=== PATIENT | female | born 1940 | race Caucasian/White ===

== ENCOUNTER 2020-02-10 10:11 | Inpatient (IN) | payer MEDICARE, MEDICAID ==
[~2020-02-10] VITALS: Ht 165.1 cm; Wt 72.6 kg
--- NOTE | ~2020-02-10 | CON ---
[address] [address] CONSULTATION Name: YUE GODFREY Room: [address] IN M.R.#: [id number] Admission: 02/10/20 Attend Phys: Katerina Luque Discharge: Date of : 36 Report #: [id number] THIS REPORT FOR: //name// cc: Je Alanis MD, Dennis R MD ~ THIS REPORT FOR: //name// DATE OF SERVICE: 02/10/2020 CONSULT REQUESTED BY: Dr. Cardenas. INDICATION FOR CONSULTATION: Pulmonary infiltrate. HISTORY OF PRESENT ILLNESS: This is an 80-year-old female. She is a resident of a longterm. The patient currently has altered mental status. It is possible that she has significant dementia as well as she is not able to provide any meaningful history. The patient has been transferred here according to the records due to decreased O2 saturations. The patient has a very large infiltrate in the right upper lobe, likely extending into the right middle lobe. There is dense consolidation of the right upper lobe on her chest x-ray. The patient has been fluid resuscitated, also has been treated with Zosyn and Levaquin. She currently has a significant amount of gurgling and rattling mucus in the upper airways. The patient, however, has been taking orally without problems according to the patient's nurse. The patient did have a higher respiratory rate at the time of my examination up to 30, although most previous respiratory rates are documented in the 18-20 range. The patient has been oxygenating adequately with 2 L oxygen. The patient is confused at the time of my examination and therefore is unable to provide a further history or review of systems. PAST MEDICAL HISTORY: COPD is mentioned in the records; however, it is also mentioned that she is a lifetime nonsmoker. Diabetes, hypertension, gastroesophageal reflux disease, bradycardia, hyperlipidemia, TIAs with some mental delay. SOCIAL HISTORY: Resident of a long-term care facility. No known history of smoking, ethanol abuse or drug abuse. ALLERGIES: ASPIRIN. FAMILY HISTORY: There is a history of lung cancer in her family according to the records. CURRENT MEDICATIONS: List in [employer] reviewed. HOME MEDICATIONS: List also in [facility] [place] [address] CONSULTATION Name: YUE GODFREY Room: [address]#: [id number] Admission: 02/10/20 Attend Phys: Katerina Luque Discharge: Date of : 36 Report #: [id number] PHYSICAL EXAMINATION: GENERAL: She is drowsy, but fully arousable. VITAL SIGNS: Has a pulse of 60 and a blood pressure of 137/51. At the time of my examination she did have accessory muscle use and a respiratory rate around 30-32. Note that this is significantly higher than those previously documented in the records, the patient has received fluids. It is noted she is afebrile. She is saturating in the high 90s on 2 liters oxygen via nasal cannula. The patient is unable to answer orientation questions. HEENT: Head is normocephalic and atraumatic. Pupils are equal and reactive. There is no throat erythema. Throat examination; however, is limited due to limited patient cooperation. NECK: Does not show raised JVP, asymmetry, mass or lymph nodes. CHEST: Symmetrical expansion on inspection and palpation. On auscultation, there are transmitted sounds from upper airways. The patient appears to have significant mucous plugging. HEART: Regular. There is no murmur. ABDOMEN: Soft and nontender. EXTREMITIES: Lower extremities show no edema, no calf tenderness. SKIN: Dry and intact. NEUROLOGICAL: Moves all extremities bilaterally equally and spontaneously, no focal deficit identified. LABORATORY DATA: The patient's chest x-ray shows a large infiltrate is as discussed above. CT head did not show any acute bleed. The CBC as well as chemistries are [facility]. These are reviewed. I ordered repeat chemistries from this evening. COVID-19 antigen is negative. ASSESSMENT AND PLAN: 1. Acute hypoxemic respiratory failure. The patient does have increased work of breathing. Therefore, I recommend that she be placed on a BiPAP while asleep and p.r.n. and for this reason, I recommend that she to be transferred to a negative pressure room as I also would like to obtain a COVID-19 PCR. 2. Severe healthcare-associated pneumonia/pulmonary infiltrate. There is a very large infiltrate noted in the right upper lobe, likely extending into the right middle lobe. We will continue with Levaquin as well as Zosyn as per guidelines, we will also like to cover for MRSA and therefore Zyvox is ordered as in my view the potential risk of nephrotoxicity with vancomycin is higher than average in this patient. More cultures and serologies are also ordered. We will also go ahead and give her 2 doses of Solu-Medrol. We will assess tomorrow morning regarding whether more steroids are indicated. I would treat her with nebulized bronchodilators. 3. Mucus plugging, physical examination is consistent with this. We will order Mucomyst. 4. High aspiration risk. Recommend strict aspiration precautions and obtain a speech evaluation tomorrow morning. The patient's RN reports that she does not [facility] [address] [address] CONSULTATION Name: YUE GODFREY Room: [address] IN M.R.#: [id number] Admission: 02/10/20 Attend Phys: Katerina Luque Discharge: Date of : 38 Report #: [id number] have any obvious difficulty in swallowing. 5. Severe malnutrition/fluid overload. I feel that she is total body fluid overloaded. It is possible; however, that she had intravascular volume depletion at least at presentation; therefore, she has been fluid resuscitated. I will repeat labs this evening and then will decide as to whether some diuresis with albumin should be administered. 6. Deep vein thrombosis prophylaxis. If her anemia is chronic, then I will recommend considering subcutaneous Lovenox. 7. Gastrointestinal prophylaxis, proton pump inhibitor. 8. Diabetes. I would defer management to the primary service since I am ordering Solu-Medrol for now, I did order an insulin sliding scale. This may need to be changed and I would defer to the primary service in this regard. 9. Clostridium difficile prophylaxis, Florastor. Thanks for this consultation. By: 1807 1909Aelizabeth Marcial MD /nt
--- NOTE | ~2020-02-10 | EMS ---
[address] [address] EMS Patient Care Report Name: YUE GODFREY Room: [address] IN [facility]#: [id number] Admission: 02/10/20 Attend Phys: Katerina Luque Discharge: Date of : 38 Report #: [id number] THIS REPORT FOR: //name// Report Transmitted: 02/10/2020 20:49 EMS Care Summary [facility] Joshua BEAUCHAMP Incident [id number] @ 02/10/2020 09:15 Incident Location [address] [place] [address] Patient YUE GODFREY Female, 80 Years 1940 Patient Address [address] [place] [address] Patient History Chronic Obstructive Pulmonary Disease (COPD),Type 2 diabetes mellitus,Hyperlipidemia,Anemia, unspecified,Congestive Heart Failure (CHF),Gastro-Esophageal Reflux Disease (GERD),Other chronic pain,Pneumonia, unspecified organism,Transient cerebral ischemic attack, unspecified, Patient Allergies , Patient Medications ferrous sulfate, Hydralazine, Ipratropium, Furosemide, Lisinopril, Calcium Carbonate / Calcium Gluconate / Vitamin D, Potassium Chloride, pantoprazole, ezetimibe, Clonazepam, Amoxicillin / Clavulanate, Insulin Glargine, pregabalin, NovoLog, Acetaminophen, Vimpat, Acetaminophen, Magnesium Hydroxide, Chief Complaint Altered Level of Consciousness Disposition Transported No Lights/[place] Reason Breathing Problem [facility] [address] [place] [address] EMS Patient Care Report Name: YUE GODFREY Room: [address] ADM IN [facility].#: [id number] Admission: 02/10/20 Attend Phys: Katerina Luque Discharge: Date of : 38 Report #: [id number] Narrative [facility] DIS[address]ATCHED TO [address], ROOM 81 ON RESPIRATORY DISTRESS. STARTING LOCATION IS [address] [place] [address]. THIS IS FOR AN 80 YEAR OLD FEMALE WITH ALTERED LEVEL OF CONSCIOUSNESS, SHORT OF AIR, PNEUMONIA HISTORY. CALLER ADVISES TO ENTER FACILITY VIA BACK ENTRANCE. 315 ARRIVES ON SCENE WITHOUT INCIDENT. PATIENTS NURSE LETS [facility] IN AT REAR DOOR AND ESCORTS TO ROOM 81. IN 81, PATIENT (YUE) FOUND UPRIGHT IN SEMI-MELGOZA'S POSITION ON FACILITY BED. YUE'S EYES OPEN TO VERBAL STIMULATION AND TRACK TO PROVIDERS, BREATHING REGULAR/NON-LABORED/ON ROOM AIR, MILD RHONCHI CAN BE HEARD AT END OF EXPIRATION, SKIN INTACT/CONDITION NOTED. NURSING STAFF STATES CALLING 911 AFTER YUE SHOWED DECREASE RESPONSIVENESS BY "CLOSING HER EYES AND NOT SHUTTING HER MOUTH" FOR LAST 20 MINUTES. NURSE CONTINUES THAT YUE BEGAN TO SHOW DECREASED RESPONSIVENESS STARTING LAST NIGHT BEFORE DINNER. PER STAFF, YUE'S BASELINE IS ALERT TO SELF, VERBALIZES SPONTANEOUSLY WITH ORIENTED CONVERSATION, AND YUE IS ABLE TO WHEEL HERSELF AROUND IN WHEELCHAIR. STARTING LAST NIGHT BEFORE DINNER, YUE HAS SHOWN GENERALIZED WEAKNESS AND IS NOT VERBAL IN RESPONSE TO STAFF. YUE WAS TRANSPORTED TO [facility] ED LAST SUNDAY, WHERE SHE WAS DIAGNOSED WITH PNEUMONIA AND PRESCRIBED AUGMENTIN. FACILITY STAFF PROVIDES RESIDENT PAPERWORK INDICATING VITALS ASSESSED BY STAFF PRIOR TO ARRIVAL WELL MEDICAL HISTORY, MEDICATIONS, AND PHYSICIAN ORDERS. STAFF NEEDED TO ASSIST YUE WITH BREAKFAST THIS MORNING. YUE HAS BEEN ADMINISTERED HER PERCOCET, VIMPAT, AND LYRICA THIS MORNING. SHE ALSO RECEIVED IPRATROPIUM NEBULIZER THERAPY SCHEDULED AT 06:00. ALL ASSESSMENTS AND TREATMENTS ARE PERFORMED DOCUMENTED. YUE KEEPS MOUTH OPEN AT ALL TIMES, GIVING MUFFLED RESPONSES TO INDICATE YES OR NO TO QUESTIONS. YUE COMPLAINS OF WEAKNESS, DIFFICULTY BREATHING, AND FEELING TIRED. SHE DENIES PAIN, FEELING LIGHT-HEADED, DIZZY, ONE SIDED SENSORY OR MOTOR CHANGES, NAUSEA, VOMITING, DIARRHEA, OR FEVER. FURTHER DETAILED HISTORY OF PRESENT ILLNESS IMPACTED BY YUE'S DECREASED VERBAL RESPONSIVENESS. DUE TO [facility] EXPERIENCING HIGH VOLUME, [facility] AGREED ON BY [facility] AND FACILITY STAFF DESTINATION. STAFF STATES THEY WILL NOTIFY FAMILY OF DESTINATION DECISION. COT BROUGHT INTO 81 AND PLACED NEXT TO FACILITY BED. [place] [id number] USE DRAW SHEET TO TRANSFER YUE LATERALLY TO COT WITHOUT INCIDENT AND SECURED WITH ALL SEAT BELTS. COT TAKEN TO AMBULANCE AND SECURED IN AMBULANCE. IN AMBULANCE, ALL ASSESSMENTS AND TREATMENTS ARE PERFORMED NOTED. TRANSPORT BEGINS TO [facility] NEAREST FACILITY NOT ON HIGH VOLUME STATUS IN INTEREST OF YUE NOT EXPERIENCING POSSIBLE DELAY IN ED EVALUATION OR TREATMENT. DURING TRANSPORT, YUE REMAINS SECURE ON COT UPRIGHT IN SEMI-MELGOZA'S POSITION. ALL ONGOING ASSESSMENTS AND TREATMENTS PERFORMED NOTED. YUE STATES HER BREATHING IS FEELING "A LITTLE BETTER" AFTER OXYGEN THERAPY. YUE CONTINUES TO DENY OTHER ACUTE COMPLAINT. Amy ARRIVES AT [facility] ED WITHOUT INCIDENT. EXPLANATION OF PRIVACY RIGHTS EXPLAINED TO YUE, AND SHE NODS IN AGREEMENT, BUT SHE DOES NOT FOLLOW VERBAL REQUESTS FOR SIGNATURE DUE TO GLOBAL EXTREMITY WEAKNESS. PER FACILITY STAFF'S REPORT, YUE IS STILL SHOWING ALTERED [facility] [address] [place] [address] EMS Patient Care Report Name: YUE GODFREY Room: [address] IN [facility].#: [id number] Admission: 02/10/20 Attend Phys: Katerina Luque Discharge: Date of : 38 Report #: [id number] MENTATION FROM BASELINE, SO SIGNATURE OF PRIVACY RIGHTS DEFERRED TO DESTINATION NURSING STAFF. A MASK IS PLACED ON YUE, AND SEATBELTS ENSURED SECURE. COT REMOVED FROM AMBULANCE AND TAKEN TO ED 18. IN ED 18, COT PLACED NEXT TO ED BED. 315 USES DRAW SHEET TO TRANSFER YUE LATERALLY TO ED BED WITHOUT INCIDENT. VERBAL REPORT GIVEN, SIGNATURES OBTAINED, AND 315 IS CLEAR AND AVAILABLE. END REPORT. Initial Vitals @09:33SpO2: 96, @09:34SpO2: 96, @09:35SpO2: 96, @09:38SpO2: 95, @09:47SpO2: 97, @09:48SpO2: 97, @09:53SpO2: 98, @09:57SpO2: 98, @10:02SpO2: 99, @09:26SpO2: 86, @PTASpO2: 90, @09:36 @09:47 @09:41Temp: 98.06F, @09:35P: 57,R: 20,BP: 116/46, @09:47P: 54,R: 19,BP: 112/45, @09:57P: 52,R: 19,BP: 114/46, @09:27P: 56,R: 20,BP: 116/50, @PTAP: 96, @09:71DjBF2: 28, @09:39LlXA5: 32, @09:88GoCM8: 32, @09:73PvKH8: 32, @09:29FrGE5: 33, @09:05BiQY1: 33, @09:82WaKI2: 33, @09:85QxHA7: 32, @09:83TpTO6: 32, @09:70ApOV7: 32, @10:82WiSH5: 32, @09:35GCS: 12, @09:47GCS: 15, @09:57GCS: 13, @09:27GCS: 12, @TRANSITION MANAGER @09:39Glucose: 193, [place] [address] EMS Patient Care Report Name: TANESHA GODFREYN Nilda Room: [address] IN [facility]#: [id number] Admission: 02/10/20 Attend Phys: Katerina Luque Discharge: Date of : 36 Report #: [id number] @09:23MENTAL:SKIN:HEENT:LUNG SOUNDS:ABDOMEN:PELVIS//GI:EXTREMITIES:PULSE:NEURO: Impression Pneumonia, unspecified organism Procedures @09:27Other - Medication - 2.000 Liters per Minute (l/min [fluid]) - Nasal CannulaResponse: Improved@09:39 cc () Site: Forearm-LeftResponse: UnchangedSucceeded@09:39 cc () Site: Forearm-LeftResponse: UnchangedSucceeded@09:41 cc () Response: UnchangedSucceeded@09:28Digital respired carbon dioxide monitoring (regime/therapy)Response: UnchangedSucceeded@09:33Digital respired carbon dioxide monitoring (regime/therapy)Response: UnchangedSucceeded@09:34Digital respired carbon dioxide monitoring (regime/therapy)Response: UnchangedSucceeded@09:35Digital respired carbon dioxide monitoring (regime/therapy)Response: UnchangedSucceeded@09:38Digital respired carbon dioxide monitoring (regime/therapy)Response: UnchangedSucceeded@09:43Digital respired carbon dioxide monitoring (regime/therapy)Response: UnchangedSucceeded@09:47Digital respired carbon dioxide monitoring (regime/therapy)Response: UnchangedSucceeded@09:48Digital respired carbon dioxide monitoring (regime/therapy)Response: UnchangedSucceeded@09:53Digital respired carbon dioxide monitoring (regime/therapy)Response: UnchangedSucceeded@09:57Digital respired carbon dioxide monitoring (regime/therapy)Response: UnchangedSucceeded@10:02Digital respired carbon dioxide monitoring (regime/therapy)Response: UnchangedSucceeded@09:3612-Lead ECGResponse: UnchangedSucceeded@09:4712-Lead ECGResponse: UnchangedSucceeded Timeline TRANSITION MANAGER,BP: / M,PULSE: ,RR: R,SPO2: 90 Ox,ETCO2: ,BG: ,PAIN: ,GCS: , TRANSITION MANAGER,BP: 93/ M,PULSE: 96,RR: R,SPO2: Ox,ETCO2: ,BG: ,PAIN: ,GCS: , TRANSITION MANAGER,BP: / M,PULSE: ,RR: R,SPO2: Ox,ETCO2: ,BG: ,PAIN: ,GCS: , 09:15,Call Received 09:15,Dispatch Notified 09:15,Psap Call 09:15,Dispatched 09:15,En Route 09:21,On Scene 09:23,At Patient 09:26,BP: / M,PULSE: ,RR: R,SPO2: 86 Ox,ETCO2: ,BG: ,PAIN: ,GCS: , 09:27,Other - Medication - 2.000 Liters per Minute (l/min [fluid]) - Nasal Cannula,Response: Improved 09:27,BP: 116/50 M,PULSE: 56,RR: 20 R,SPO2: Ox,ETCO2: ,BG: ,PAIN: ,GCS: , 09:27,BP: / M,PULSE: ,RR: R,SPO2: Ox,ETCO2: ,BG: ,PAIN: ,GCS: 12, 09:28,Digital respired carbon dioxide monitoring (regime/therapy),Response: UnchangedSucceeded, [place] [address] EMS Patient Care Report Name: YUE GODFREY Room: [address] IN [facility].#: [id number] Admission: 02/10/20 Attend Phys: Katerina Luque Discharge: Date of : 38 Report #: [id number] 09:28,BP: / M,PULSE: ,RR: R,SPO2: Ox,ETCO2: 28 ,BG: ,PAIN: ,GCS: , 09:33,Digital respired carbon dioxide monitoring (regime/therapy),Response: UnchangedSucceeded, :33,BP: / M,PULSE: ,RR: R,SPO2: 96 Ox,ETCO2: ,BG: ,PAIN: ,GCS: , 09:33,BP: / M,PULSE: ,RR: R,SPO2: Ox,ETCO2: 32 ,BG: ,PAIN: ,GCS: , 09:34,Digital respired carbon dioxide monitoring (regime/therapy),Response: UnchangedSucceeded, 09:34,BP: / M,PULSE: ,RR: R,SPO2: 96 Ox,ETCO2: ,BG: ,PAIN: ,GCS: , 09:34,BP: / M,PULSE: ,RR: R,SPO2: Ox,ETCO2: 32 ,BG: ,PAIN: ,GCS: , 09:35,Digital respired carbon dioxide monitoring (regime/therapy),Response: UnchangedSucceeded, 09:35,BP: / M,PULSE: ,RR: R,SPO2: 96 Ox,ETCO2: ,BG: ,PAIN: ,GCS: , 09:35,BP: 116/46 M,PULSE: 57,RR: 20 R,SPO2: Ox,ETCO2: ,BG: ,PAIN: ,GCS: , 09:35,BP: / M,PULSE: ,RR: R,SPO2: Ox,ETCO2: 32 ,BG: ,PAIN: ,GCS: , 09:35,BP: / M,PULSE: ,RR: R,SPO2: Ox,ETCO2: ,BG: ,PAIN: ,GCS: 12, 09:36,12-Lead ECG,Response: UnchangedSucceeded, 09:36,BP: / M,PULSE: ,RR: R,SPO2: Ox,ETCO2: ,BG: ,PAIN: ,GCS: , 09:38,Digital respired carbon dioxide monitoring (regime/therapy),Response: UnchangedSucceeded, 09:38,BP: / M,PULSE: ,RR: R,SPO2: 95 Ox,ETCO2: ,BG: ,PAIN: ,GCS: , 09:38,BP: / M,PULSE: ,RR: R,SPO2: Ox,ETCO2: 33 ,BG: ,PAIN: ,GCS: , 09:39, cc Site: Forearm-Left,Response: UnchangedSucceeded, 09:39, cc Site: Forearm-Left,Response: UnchangedSucceeded, 09:39,BP: / M,PULSE: ,RR: R,SPO2: Ox,ETCO2: ,B,PAIN: ,GCS: , 09:41, cc Site: ,Response: UnchangedSucceeded, 09:41,BP: / M,PULSE: ,RR: R,SPO2: Ox,ETCO2: ,BG: ,PAIN: ,GCS: , 09:43,Digital respired carbon dioxide monitoring (regime/therapy),Response: UnchangedSucceeded, 09:43,BP: / M,PULSE: ,RR: R,SPO2: Ox,ETCO2: 33 ,BG: ,PAIN: ,GCS: , 09:47,Digital respired carbon dioxide monitoring (regime/therapy),Response: UnchangedSucceeded, 09:47,12-Lead ECG,Response: UnchangedSucceeded, 09:47,BP: / M,PULSE: ,RR: R,SPO2: 97 Ox,ETCO2: ,BG: ,PAIN: ,GCS: , 09:47,BP: / M,PULSE: ,RR: R,SPO2: Ox,ETCO2: ,BG: ,PAIN: ,GCS: , 09:47,BP: 112/45 M,PULSE: 54,RR: 19 R,SPO2: Ox,ETCO2: ,BG: ,PAIN: ,GCS: , 09:47,BP: / M,PULSE: ,RR: R,SPO2: Ox,ETCO2: 33 ,BG: ,PAIN: ,GCS: , 09:47,BP: / M,PULSE: ,RR: R,SPO2: Ox,ETCO2: ,BG: ,PAIN: ,GCS: 15, 09:48,Digital respired carbon dioxide monitoring (regime/therapy),Response: UnchangedSucceeded, 09:48,BP: / M,PULSE: ,RR: R,SPO2: 97 Ox,ETCO2: ,BG: ,PAIN: ,GCS: , 09:48,BP: / M,PULSE: ,RR: R,SPO2: Ox,ETCO2: 32 ,BG: ,PAIN: ,GCS: , 09:48,Depart Scene 09:53,Digital respired carbon dioxide monitoring (regime/therapy),Response: UnchangedSucceeded, 09:53,BP: / M,PULSE: ,RR: R,SPO2: 98 Ox,ETCO2: ,BG: ,PAIN: ,GCS: , 09:53,BP: / M,PULSE: ,RR: R,SPO2: Ox,ETCO2: 32 ,BG: ,PAIN: ,GCS: , [address] [address] EMS Patient Care Report Name: YUE GODFREY Room: [address] IN .R.#: [id number] Admission: 02/10/20 Attend Phys: Katerina Luque Discharge: Date of : 36 Report #: [id number] 09:57,Digital respired carbon dioxide monitoring (regime/therapy),Response: UnchangedSucceeded, 09:57,BP: / M,PULSE: ,RR: R,SPO2: 98 Ox,ETCO2: ,BG: ,PAIN: ,GCS: , 09:57,BP: 114/46 M,PULSE: 52,RR: 19 R,SPO2: Ox,ETCO2: ,BG: ,PAIN: ,GCS: , 09:57,BP: / M,PULSE: ,RR: R,SPO2: Ox,ETCO2: 32 ,BG: ,PAIN: ,GCS: , 09:57,BP: / M,PULSE: ,RR: R,SPO2: Ox,ETCO2: ,BG: ,PAIN: ,GCS: 13, 10:02,Digital respired carbon dioxide monitoring (regime/therapy),Response: UnchangedSucceeded, 10:02,BP: / M,PULSE: ,RR: R,SPO2: 99 Ox,ETCO2: ,BG: ,PAIN: ,GCS: , 10:02,BP: / M,PULSE: ,RR: R,SPO2: Ox,ETCO2: 32 ,BG: ,PAIN: ,GCS: , 10:06,At Destination 10:29,Call Closed Disclaimer v1.1 Copyright 2020 [employer] This EMS Care Summary contains data elements from the applicable legal record (which may be displayed differently). It is designed to provide pertinent information for the following purposes: continuity of care, clinical quality, and state data reporting. The complete legal record is available to ED staff and administrators of the receiving hospital in [employer] Patient Tracker. All data is provided "as is."
[2020-02-10 10:12] VITALS: BP 111/29
[2020-02-10] MEDS ORDERED: FERRETTS325 MG PO (10:40)
[2020-02-10] MEDS ORDERED: HYDRALAZINE 2525 M1 PO (10:40)
[2020-02-10] MEDS ORDERED: MULTIVITAMINS1 EAC6 PO (10:41)
[2020-02-10] MEDS ORDERED: IPRATROPIU0.2 MG/1 M INH (10:41)
[2020-02-10] MEDS ORDERED: LASIX 20 MG TAB20 MG PO (10:41)
[2020-02-10] MEDS ORDERED: ZESTRIL20 MG PO (10:41)
[2020-02-10] MEDS ORDERED: KLOR-CON 10 ER10 MEQ PO (10:42)
[2020-02-10] MEDS ORDERED: OYSTER SHELL 21 EACH PO (10:42)
[2020-02-10] MEDS ORDERED: PROTONIX40 M3 PO (10:42)
[2020-02-10] MEDS ORDERED: CLONAZEPAM 0.50.5 M1 PO (10:42)
[2020-02-10] MEDS ORDERED: ZETIA10 MG PO (10:42)
[2020-02-10] MEDS ORDERED: PERCOCET 5-3251 EACH PO (10:43)
[2020-02-10] MEDS ORDERED: NOVOLOG100 UNIT/M SUBQ (10:43)
[2020-02-10] MEDS ORDERED: LYRICA100 MG PO (10:43)
[2020-02-10] MEDS ORDERED: LANTUS SUBQ (10:43)
[2020-02-10] MEDS ORDERED: BIOFREEZE118 ML TOP (10:44)
[2020-02-10] MEDS ORDERED: TYLENOL325 M1 PO (10:44)
[2020-02-10] MEDS ORDERED: VIMPAT200 MG PO (10:44)
[2020-02-10] MEDS ORDERED: MILK OF MA400 MG/5 M PO (10:44)
[2020-02-10 10:58] LABS: HEMATOCRIT 28.6 % (37.0-47.0); HEMOGLOBIN 8.9 gm/dL (12.0-15.0); MCH 22.9 pg (26.0-34.0); MCHC 30.9 g/dL (28.0-37.0); MCV 74.2 fL (80.0-100.0); MPV 7.6 fl. (7.2-11.1); NUCLEATED RBCS 0 /100WBC; PLATELET COUNT* 211 thou/uL (150-400); RBC 3.86 mil/uL (4.20-5.00); RDW-CV 18.6 % (10.5-14.5); WBC 12.1 thou/uL (4.0-11.0)
[2020-02-10 11:08] LABS: CALCIUM 7.5 mg/dL (8.5-10.1); CREATININE 1.1 mg/dL (0.6-1.3); POTASSIUM 3.5 mmol/L (3.5-5.1)
[2020-02-10 11:17] LABS: ALBUMIN 1.4 g/dL (3.4-5.0); TOTAL BILIRUBIN 0.2 mg/dL (<0.1-1.0); TOTAL PROTEIN 5.7 g/dL (6.4-8.2)
[2020-02-10 11:20] LABS: APTT 26.1 Seconds (25.0-31.3); INR 1.1; PROTIME 11.7 Seconds (9.20-11.50)
[2020-02-10 11:31] LABS: ABSOLUTE LYMPHOCYTES 0.2 thou/uL (0.8-5.3); ABSOLUTE MONOCYTES 0.8 thou/uL (0.0-1.2); HYPOCHROMASIA 2+; OVALOCYTES 1+; PLATELET ESTIMATE ADEQUATE
[2020-02-10 11:32] LABS: MICROCYTES 1+
[2020-02-10 14:06] LABS: CREATININE 1.1 mg/dL (0.6-1.3); POTASSIUM 3.2 mmol/L (3.5-5.1)
[2020-02-10 14:09] LABS: MAGNESIUM 1.9 mg/dL (1.8-2.4); PHOSPHORUS* 4.2 mg/dL (2.5-4.9)
--- NOTE | 2020-02-10 14:31 | EKG ---
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 /EPI
[2020-02-10 14:41] VITALS: BP 129/46
[2020-02-10 14:50] VITALS: BP 111/33
[2020-02-10 16:00] VITALS: BP 137/51
[2020-02-10 20:00] VITALS: BP 123/45
[2020-02-10 20:03] LABS: CALCIUM 7.6 mg/dL (8.5-10.1); CREATININE 0.9 mg/dL (0.6-1.3); POTASSIUM 4.1 mmol/L (3.5-5.1)
[2020-02-11] VITALS: BP 132/58
[2020-02-11 04:00] VITALS: BP 140/67
[2020-02-11 04:25] LABS: ABSOLUTE LYMPHOCYTES 0.1 thou/uL (0.8-5.3); ABSOLUTE MONOCYTES 0.2 thou/uL (0.0-1.2); BASOPHILS 0.3 %; HEMATOCRIT 28.8 % (37.0-47.0); HEMOGLOBIN 9.2 gm/dL (12.0-15.0); LYMPHOCYTES 1.2 %; MCH 23.3 pg (26.0-34.0); MCHC 31.8 g/dL (28.0-37.0); MCV 73.3 fL (80.0-100.0); MONOCYTES 1.6 %; NUCLEATED RBCS 0 /100WBC; PLATELET COUNT* 205 thou/uL (150-400); POLYS 96.9 %; RBC 3.93 mil/uL (4.20-5.00); RDW-CV 18.2 % (10.5-14.5); WBC 11.4 thou/uL (4.0-11.0)
[2020-02-11 05:00] LABS: ALBUMIN 1.6 g/dL (3.4-5.0); CALCIUM 7.8 mg/dL (8.5-10.1); POTASSIUM 4.3 mmol/L (3.5-5.1); TOTAL BILIRUBIN 0.4 mg/dL (<0.1-1.0); TOTAL PROTEIN 6.2 g/dL (6.4-8.2)
[2020-02-11 08:45] VITALS: BP 149/68
[2020-02-11 12:30] VITALS: BP 148/64
[2020-02-11 16:00] VITALS: BP 141/70
[2020-02-11 20:00] VITALS: BP 123/77
[2020-02-12] VITALS: BP 141/60
[2020-02-12 04:00] VITALS: BP 147/59
[2020-02-12 04:34] LABS: ABSOLUTE BASOPHILS 0.1 thou/uL (0.0-0.2); ABSOLUTE LYMPHOCYTES 0.4 thou/uL (0.8-5.3); ABSOLUTE NEUTROPHILS 11.7 thou/uL (1.6-8.1); BASOPHILS 0.9 %; EOSINOPHILS 0.2 %; HEMOGLOBIN 9.5 gm/dL (12.0-15.0); LYMPHOCYTES 3.2 %; MCH 22.6 pg (26.0-34.0); MCHC 31.5 g/dL (28.0-37.0); MCV 71.7 fL (80.0-100.0); MONOCYTES 7.9 %; NUCLEATED RBCS 0 /100WBC; PLATELET COUNT* 248 thou/uL (150-400); POLYS 87.8 %; RBC 4.18 mil/uL (4.20-5.00); RDW-CV 17.9 % (10.5-14.5); WBC 13.3 thou/uL (4.0-11.0)
[2020-02-12 05:31] LABS: ALBUMIN 2.1 g/dL (3.4-5.0); CALCIUM 8.2 mg/dL (8.5-10.1); CREATININE 0.9 mg/dL (0.6-1.3); MAGNESIUM 1.4 mg/dL (1.8-2.4); TOTAL BILIRUBIN 0.4 mg/dL (<0.1-1.0); TOTAL PROTEIN 6.5 g/dL (6.4-8.2)
[2020-02-12 05:45] LABS: POTASSIUM 2.9 mmol/L (3.5-5.1)
[2020-02-12 10:05] VITALS: BP 156/78
[2020-02-12 16:00] VITALS: BP 163/76
[2020-02-12 19:35] VITALS: BP 160/81
[2020-02-13] VITALS: BP 160/103
[2020-02-13 04:00] VITALS: BP 135/83
[2020-02-13 08:00] VITALS: BP 111/75
[2020-02-13] MEDS ORDERED: BROVANA15 MCG/2 M INH (09:29)
[2020-02-13] MEDS ORDERED: VIBRAMYCIN 100100 M2 PO (09:29)
[2020-02-13 12:00] VITALS: BP 165/80
[2020-02-13] MEDS ORDERED: AUGMENTIN 875-1 EACH PO (12:59)
[2020-02-13 14:00] VITALS: BP 111/75
== END 2020-02-13 14:48 | DRG 177 ==
LOC: M.ERS 10:11 → M.TBA-ER 11:35 → M.2W 11:35
PROVIDERS: Emergency Medicine Emergency Medical Services; Internal Medicine Critical Care Medicine; ADMIT Internal Medicine; ATTEND Internal Medicine
DX: J15.6 Pneumonia due to other Gram-negative bacteria (principal); E43 Unspecified severe protein-calorie malnutrition; J96.01 Acute respiratory failure with hypoxia; J44.0 Chronic obstructive pulmonary disease with (acute) lower respiratory infection; I95.9 Hypotension, unspecified; E87.70 Fluid overload, unspecified; E87.6 Hypokalemia; K21.9 Gastro-esophageal reflux disease without esophagitis; E78.5 Hyperlipidemia, unspecified; I10 Essential (primary) hypertension; T17.990A Other foreign object in respiratory tract, part unspecified in causing asphyxiation, initial encounter; E11.65 Type 2 diabetes mellitus with hyperglycemia; Z20.828 Contact with and (suspected) exposure to other viral communicable diseases; Z68.26 Body mass index [BMI] 26.0-26.9, adult; Z79.4 Long term (current) use of insulin; Z88.8 Allergy status to other drugs, medicaments and biological substances; Z79.899 Other long term (current) drug therapy; Z28.21 Immunization not carried out because of patient refusal; Z86.73 Personal history of transient ischemic attack (TIA), and cerebral infarction without residual deficits

== ENCOUNTER 2020-02-16 11:05 | Inpatient (IN) | payer MEDICARE, MEDICAID ==
[2020-02-16] VITALS (26 sets, daily range): BP systolic 79–139; BP diastolic 24–72
[~2020-02-16] VITALS: Ht 167.6 cm; Wt 62.3 kg
[~2020-02-16 11:05] MED LIST: AUGMENTIN 875-1 EACH PO; BIOFREEZE118 ML TOP; BROVANA15 MCG/2 M INH; CLONAZEPAM 0.50.5 M1 PO; FERRETTS325 MG PO; HYDRALAZINE 2525 M1 PO; IPRATROPIU0.2 MG/1 M INH; KLOR-CON 10 ER10 MEQ PO; LANTUS SUBQ; LASIX 20 MG TAB20 MG PO; LYRICA100 MG PO; MILK OF MA400 MG/5 M PO; MULTIVITAMINS1 EAC6 PO; NOVOLOG100 UNIT/M SUBQ; OYSTER SHELL 21 EACH PO; PERCOCET 5-3251 EACH PO; PROTONIX40 M3 PO; TYLENOL325 M1 PO; VIBRAMYCIN 100100 M2 PO; VIMPAT200 MG PO; ZESTRIL20 MG PO; ZETIA10 MG PO
[2020-02-16 11:42] LABS: BE -6.6 mmol/L (-2 to +3); pH 7.331 (7.340-7.450)
[2020-02-16 11:53] LABS: HEMATOCRIT 31.1 % (37.0-47.0); HEMOGLOBIN 9.6 gm/dL (12.0-15.0); MCH 22.9 pg (26.0-34.0); MCV 73.8 fL (80.0-100.0); MPV 7.7 fl. (7.2-11.1); NUCLEATED RBCS 0 /100WBC; PLATELET COUNT* 243 thou/uL (150-400); RBC 4.21 mil/uL (4.20-5.00); RDW-CV 19.5 % (10.5-14.5); WBC 19.9 thou/uL (4.0-11.0)
[2020-02-16 12:01] LABS: CALCIUM 7.8 mg/dL (8.5-10.1); CREATININE 2.4 mg/dL (0.6-1.3); POTASSIUM 3.8 mmol/L (3.5-5.1)
[2020-02-16 12:06] LABS: ALBUMIN 1.9 g/dL (3.4-5.0); MAGNESIUM 1.9 mg/dL (1.8-2.4); TOTAL BILIRUBIN 0.4 mg/dL (<0.1-1.0); TOTAL PROTEIN 6.2 g/dL (6.4-8.2)
[2020-02-16 12:17] LABS: URINE BILIRUBIN NEGATIVE (Negative); URINE BLOOD NEGATIVE (Negative); URINE CLARITY CLEAR; URINE COLOR YELLOW; URINE GLUCOSE-RANDOM NEGATIVE (Negative); URINE KETONES NEGATIVE (Negative); URINE LEUKOCYTES-REFLEX NEGATIVE (Negative); URINE NITRITE-REFLEX NEGATIVE (Negative); URINE PROTEIN NEGATIVE (Negative); URINE SPECIFIC GRAVITY >= 1.030 (1.005-1.030); URINE UROBILINOGEN 0.2 E.U./dl (0.2-1.0)
[2020-02-16 12:19] LABS: ABSOLUTE NEUTROPHILS 18.9 thou/uL (1.6-8.1); PLATELET ESTIMATE ADEQUATE
--- NOTE | 2020-02-16 17:56 | EKG ---
[place] [address] ELECTROCARDIOGRAM REPORT Name: YUE GODFREY Nilda Room: [address] ADM IN M.R.#: [id number] Admission: 02/16/20 Attend Phys: Hira Ren, Discharge: Date of : 36 Date of Service: 02/16/20 1112 Report #: [id number] THIS REPORT FOR: //name// [facility] ED Test Date: 2020-02-16 Test Time: 11:12:27 Pat Name: YUE GODFREY Department: Room: [facility] Gender: F Nail Tech: CCD : 1940 Requested By: Belia Parra Order Number: [id number] MD: Nigel Pepe Measurements Intervals [place] Rate: 84 P: -32 GA: 167 QRS: 57 QRSD: 112 T: 55 QT: 425 QTc: 503 Interpretive Statements Sinus rhythm Low voltage, precordial leads Prolonged QT interval Compared to ECG 02/10/2020 10:45:49 Prolonged QT interval now present Sinus bradycardia no longer present Poor R-wave progression no longer present Electronically Signed On 02-16-2020 17:56:11 CDT by Nigel Pepe [email or web address] <ELECTRONICALLY SIGNED> By: Nigel Pepe MD, FACC 02/16/20 1756 11 111 Nigel Pepe MD, FACC /EPI
--- NOTE | 2020-02-16 19:45 | NUR ---
I ASSUMED CARE OF THE PATIENT A TRANSFER AT 1500. PATIENT HAD A STAT CT OF HEAD JUST BEFORE ARRIVAL. SHE WAS TURNED EVERY 2 HOURS. A CENTRAL LINE WAS PLACED BY ANESTHESIA IN THE RIGHT IJ. FLUIDS ARE NOW RUNNING AND IV ANTIBIOTICS ARE BEING HUNG. OXYGEN IS MAINTAINED ON 2 LITERS. SHE REMAINS NPO AND IS HARD TO AROUSE, BUT WAS COMBATIVE WHILE LINE WAS BEING PLACED. GI WAS CONTACTED AND WILL SEE THE PATIENT TOMORROW. BED IS IN THE LOW LOCKED POSITION AND CALL LIGHT IS IN REACH. BED ALARM IS ON. HOURLY ROUNDING WAS COMPLETED AND PATIENT NEEDS ARE MET.
--- NOTE | 2020-02-16 22:53 | NUR ---
INITAL ASSESMENT COMPLETED AT 1930. PT LETHARGIC AND PRIENTED TO PERSON ONLY. PT REFUSING PO MEDS OR ORAL CARE. PT CLENCHES TEETH. PT ON O2 ATH 2 LITERS TO MAINTAIN SAT >94%. PT RECIEVING NORMAL SALINE AT 150 ML/HR VIA CENTRAL LINE IN RIGHT IJ. PT'S MAP AT THIS TIME 48. PT STARTED ON LEVOPHED TO MAINTAIN MAP > 65.
[2020-02-17] VITALS (59 sets, daily range): BP systolic 57–159; BP diastolic 28–85
[2020-02-17 06:00] LABS: ABSOLUTE LYMPHOCYTES 0.2 thou/uL (0.8-5.3); BASOPHILS 0.1 %; HEMOGLOBIN 8.9 gm/dL (12.0-15.0); LYMPHOCYTES 1.3 %; PLATELET COUNT* 215 thou/uL (150-400)
[2020-02-17 06:01] LABS: ABSOLUTE EOSINOPHILS 0.1 thou/uL (0.0-0.7); ABSOLUTE MONOCYTES 0.8 thou/uL (0.0-1.2); ABSOLUTE NEUTROPHILS 15.2 thou/uL (1.6-8.1); EOSINOPHILS 0.5 %; HEMATOCRIT 28.1 % (37.0-47.0); MCH 23.2 pg (26.0-34.0); MCHC 31.8 g/dL (28.0-37.0); MCV 72.9 fL (80.0-100.0); MONOCYTES 4.7 %; MPV 7.6 fl. (7.2-11.1); NUCLEATED RBCS 0 /100WBC; POLYS 93.4 %; RBC 3.86 mil/uL (4.20-5.00); RDW-CV 19.4 % (10.5-14.5); WBC 16.3 thou/uL (4.0-11.0)
[2020-02-17 06:10] LABS: CALCIUM 7.5 mg/dL (8.5-10.1); POTASSIUM 3.8 mmol/L (3.5-5.1)
[2020-02-17 06:17] LABS: CREATININE 1.3 mg/dL (0.6-1.3)
[2020-02-17 06:33] LABS: PREALBUMIN 11.1 mg/dL (18.0-35.7)
--- NOTE | 2020-02-17 06:48 | NUR ---
LEVO STOPPED AT 0645.
[2020-02-17 10:10] LABS: PCO2 31.9 mmHg (35.0-45.0); PO2 63.2 mmHg (75.0-100.0); pH 7.341 (7.340-7.450)
[2020-02-17 14:35] LABS: BE -10.8 mmol/L (-2 to +3); PO2 79.3 mmHg (75.0-100.0)
[2020-02-17 14:37] LABS: PCO2 50.4 mmHg (35.0-45.0); pH 7.161 (7.340-7.450)
--- NOTE | 2020-02-17 14:42 | NUR ---
ICU rounds: A&Ox1. Ivabx. O2. ST for swallow. Pt recently dc back to [facility] on 02/12. WC bound. CM left VM for Pt's dtr, will try back later to complete hx assessment.
--- NOTE | 2020-02-17 15:16 | NUR ---
WOUND NURSE: PATIENT SEEN TO ADDRESS EXCORIATION AND REDDISH PURPLE NONBLANCHEABLE SKIN ON THE SACRUM COCCYX AND BILATERAL BUTTOCKS. SUGGESTIVE OF INCONTINENCE ASSOCIATED DERMATITIS PATIENT WAS INCONTINENT OF FECES AT TIME OF ASSESSMENT AND HAS KEN CATHETER IN PLACE. PATIENT ALSO WITH SMALL AREAS WITHIN THIS LARGER AREA OF SUSPECTED DEEP TISSUE INJURY. AFFECTED AREA WAS CLEANSED WITH SOAP AND WATER, RINSED, THEN PATTED DRY. APPLIED Z-GUARD MOISTURE BARRIER PASTE TO AFFECTED AREAS. PLAN TO CONTINUE THIS Q SHIFT AND PRN. ALSO PATIENT WAS PLACED ON ICU BED WITH ISOLIBRIUM MATTRESS TO OFFLOAD AFFECTED AREA MUCH POSSIBLE. PATIENT IS NOT TEACEABLE AT THIS TIME.
[2020-02-17 15:40] LABS: ABSOLUTE EOSINOPHILS 0.1 thou/uL (0.0-0.7); ABSOLUTE LYMPHOCYTES 0.3 thou/uL (0.8-5.3); ABSOLUTE MONOCYTES 0.4 thou/uL (0.0-1.2); ABSOLUTE NEUTROPHILS 24.6 thou/uL (1.6-8.1); BASOPHILS 0.1 %; EOSINOPHILS 0.4 %; HEMATOCRIT 31.4 % (37.0-47.0); HEMOGLOBIN 9.4 gm/dL (12.0-15.0); LYMPHOCYTES 1.1 %; MCH 22.8 pg (26.0-34.0); MONOCYTES 1.6 %; MPV 7.6 fl. (7.2-11.1); NUCLEATED RBCS 0 /100WBC; PLATELET COUNT* 262 thou/uL (150-400); POLYS 96.8 %; RBC 4.13 mil/uL (4.20-5.00); RDW-CV 20.1 % (10.5-14.5); WBC 25.4 thou/uL (4.0-11.0)
[2020-02-17 15:51] LABS: CALCIUM 7.8 mg/dL (8.5-10.1); CREATININE 1.2 mg/dL (0.6-1.3)
[2020-02-17 15:53] LABS: APTT 29.8 Seconds (25.0-31.3); INR 1.3; PROTIME 13.6 Seconds (9.20-11.50)
[2020-02-17 15:55] LABS: ALBUMIN 1.6 g/dL (3.4-5.0); MAGNESIUM 1.4 mg/dL (1.8-2.4); TOTAL BILIRUBIN 0.5 mg/dL (<0.1-1.0); TOTAL PROTEIN 5.9 g/dL (6.4-8.2)
--- NOTE | 2020-02-17 19:21 | NUR ---
ASSESSMENT CHARTED PT HAD THREE LARGE BOWEL MOVEMENT ALERT TO SELF ONLY CONFUSED AT TIME PULLED OUT R IJ PULLED OFF LEADS O2 SAT ECT ABG DRAWN PT PUT ON BIPAP STARTED PRECEDEX AND BICARB GTT TOLERATING WELL WILL FOLLOW UP WITH NEXT ABG
[2020-02-17 20:06] LABS: BE -8.3 mmol/L (-2 to +3); PCO2 25.6 mmHg (35.0-45.0); PO2 98.9 mmHg (75.0-100.0); pH 7.401 (7.340-7.450)
--- NOTE | 2020-02-17 23:18 | NUR ---
INITAL ASSEMENT COMLETED AT 1999. PT ON BIPAP SINCE DAYSHIFT. PT ALERT TO PERSON AND SITUATION. PT IMPULSIVE REMOVING LEADS AND BIPAP AT TIMES. PT UNABLE TO FOLLOW OR REMEMBER INSTRUCTIONS. HIGH FALL PRECAUTIONS IN PLACE. PT'S HEART RATE AT THIS TIME 39. PRESEDEX DRIP STOPPED SECONDARY TO BRADYCARDIA. LEVOPHED STARTED AT THIS TIME TO MAINTAIN MAP> 65. BED ALARM ON, CALL LIGHT IN REACH, FREQUENT VISUAL CHECKS DONE.
--- NOTE | 2020-02-17 23:47 | NUR ---
UPDATED DR MILLER REGARDING PT'S CONDITION. RECIEVED ORDERS.
[2020-02-18] VITALS (56 sets, daily range): BP systolic 60–166; BP diastolic 20–91
[2020-02-18 04:35] LABS: ABSOLUTE LYMPHOCYTES 0.1 thou/uL (0.8-5.3); BASOPHILS 0.1 %; HEMOGLOBIN 7.8 gm/dL (12.0-15.0); NUCLEATED RBCS 0 /100WBC; POLYS 97.3 %
[2020-02-18 04:38] LABS: ABSOLUTE MONOCYTES 0.1 thou/uL (0.0-1.2); ABSOLUTE NEUTROPHILS 9.5 thou/uL (1.6-8.1); HEMATOCRIT 24.5 % (37.0-47.0); LYMPHOCYTES 1.1 %; MCH 23.7 pg (26.0-34.0); MONOCYTES 1.5 %; MPV 7.6 fl. (7.2-11.1); PLATELET COUNT* 197 thou/uL (150-400); RBC 3.31 mil/uL (4.20-5.00); RDW-CV 20.3 % (10.5-14.5)
[2020-02-18 04:40] LABS: WBC 9.8 thou/uL (4.0-11.0)
[2020-02-18 05:02] LABS: ALBUMIN 1.9 g/dL (3.4-5.0); CALCIUM 7.9 mg/dL (8.5-10.1); POTASSIUM 3.3 mmol/L (3.5-5.1); TOTAL BILIRUBIN 0.4 mg/dL (<0.1-1.0); TOTAL PROTEIN 5.6 g/dL (6.4-8.2)
--- NOTE | 2020-02-18 05:13 | NUR ---
LEVOPHED OFF AT 0500.
--- NOTE | 2020-02-18 08:50 | NUR ---
RIGHT BASILIC VESSEL ACCESSED FOR 5 AMERICAN TRIPLE LUMEN PICC. LINE PRE-TRIMMED TO 35CM AND ADVANCED TO THE ZERO THU WITH NO RESISTANCE MET. UPPER ARM CIRCUMFERENCE ABOVE ISERTION SITE= 11 1/2". SHERLOCK MAGNET AND 3CG CONFIRMATION OF TIP TERMINATION AT THE CAVOATRIAL JUNCTION APPRECIATED. GUIDEWIRE REMOVED, LINE FLUSHED AND INSERTION SITE DRESSED. PICC LINE SITE DRESSED WITH COBAN PATIENT HAS DECANNULATED HERSELF OF PREVIOUS IJ CENTRAL LINE AND OTHER PERIPHERAL IV'S. REPORT GIVEN TO NICK GARCES.
[2020-02-18 08:52] LABS: BE -8.2 mmol/L (-2 to +3); PCO2 37.4 mmHg (35.0-45.0)
[2020-02-18 09:00] LABS: PO2 151.2 mmHg (75.0-100.0); pH 7.291 (7.340-7.450)
--- NOTE | 2020-02-18 14:57 | NUR ---
ICU rounds: On bipap, Pt is DNR/DNI, family to discuss code status tonight.
--- NOTE | 2020-02-18 17:25 | NUR ---
pt assessment as charted pt remained on bipap becomes anxious started on precedex hr and b/p become soft and has to be turned off but comes right back up pt doesn't like wearing bipap but needs it daughter in room and updated
[2020-02-18 20:18] LABS: BE -4.4 mmol/L (-2 to +3); PCO2 VENOUS 43.6 mmHg (41.0-51.0); PO2 VENOUS 142.1 mmHg (35.0-45.0)
[2020-02-18 20:29] LABS: CALCIUM 7.7 mg/dL (8.5-10.1); CREATININE 1.1 mg/dL (0.6-1.3)
--- NOTE | 2020-02-18 22:41 | NUR ---
INITAL ASSESMENT COMPLETED AT 193. PT ALERT TO PERSON ONLY. PT CALM AND COOPERATIVE RESTING ON BIPAP. VBG OBTAIN AT 1999. RESULTS CALLED TO DR MILLER. REPORTED BLOOD PRESSURES BELOW NORMAL LIMITS AND NEED TO START LEVOPHED AT 2044. ORDER RECIEVED TO INFUSE ONE BOTTLE OF ALBUMIN. BED ALARM ON, FREQUENT VISUAL CHECKS DONE, CALL LIGHT IN REACH.
[2020-02-19] VITALS (53 sets, daily range): BP systolic 85–167; BP diastolic 37–108
--- NOTE | 2020-02-19 03:11 | NUR ---
levophed discontinued at 0300.
[2020-02-19 03:58] LABS: ABSOLUTE LYMPHOCYTES 0.2 thou/uL (0.8-5.3); BASOPHILS 0.1 %; MPV 7.3 fl. (7.2-11.1)
[2020-02-19 04:00] LABS: ABSOLUTE MONOCYTES 0.6 thou/uL (0.0-1.2); ABSOLUTE NEUTROPHILS 10.3 thou/uL (1.6-8.1); HEMATOCRIT 25.5 % (37.0-47.0); LYMPHOCYTES 1.6 %; MCH 22.9 pg (26.0-34.0); MCHC 31.5 g/dL (28.0-37.0); MCV 72.5 fL (80.0-100.0); MONOCYTES 5.3 %; NUCLEATED RBCS 0 /100WBC; PLATELET COUNT* 185 thou/uL (150-400); RBC 3.51 mil/uL (4.20-5.00); RDW-CV 19.4 % (10.5-14.5); WBC 11.1 thou/uL (4.0-11.0)
[2020-02-19 04:13] LABS: ALBUMIN 2.5 g/dL (3.4-5.0); POTASSIUM 3.7 mmol/L (3.5-5.1); TOTAL BILIRUBIN 0.5 mg/dL (<0.1-1.0); TOTAL PROTEIN 5.8 g/dL (6.4-8.2)
--- NOTE | 2020-02-19 10:19 | NUR ---
1012 PATIENT IS BECOMING ANXIOUS, TACHYCARDIC PATIENT STATES ITS BECAUSE SHE WANTS THE BIPAP MASK OFF. PATIENT'S BIPAP REMOVED AND PLACED ON NASAL CANNULA. 1020 PATIENT YELLING OUT AGAIN WANT TO PUT MASK BACK ON. BIPAP WILL BE PLACED BACK ON PATIENT.
--- NOTE | 2020-02-19 16:03 | NUR ---
ICU rounds: Remains DNR/DNI. Refusing bipap. Difficulty breathing. Pulm following.
[2020-02-19 17:19] LABS: CALCIUM 8.3 mg/dL (8.5-10.1)
--- NOTE | 2020-02-19 20:02 | NUR ---
INITAL ASSESMENT COMPLETED AT 1945. PT ON 7 LITERS HI FLOW WITH SAT OF 99%. PT ORIENTED TO PERSON AND SITUATION. PT FOLLOWS COMMANDS BUT IMPULSIVE AT TIMES. CALL LIGHT IN REACH, BED ALARM ON, FREQUENT VISUAL CHECKS DONE.
[2020-02-19 20:41] LABS: CALCIUM 8.5 mg/dL (8.5-10.1); CREATININE 1.1 mg/dL (0.6-1.3); POTASSIUM 3.9 mmol/L (3.5-5.1)
--- NOTE | 2020-02-19 22:36 | NUR ---
SPOKE WITH DR MILLER AT 0 TO REPORT INCREASED CRACKLES AND RALES. PT'S RESPIRATIONS LABORED. RECIEVED ORDERS FOR IV LASIX AND POTASSIUM REPLACEMENT.
[2020-02-20] VITALS (93 sets, daily range): BP systolic 79–172; BP diastolic 40–121
--- NOTE | 2020-02-20 02:55 | NUR ---
PT AWAKE AT 0230 HAVING SEVERE ANXIETY. PT'S HEART RATE > 110, RESPIRATIONS 28. PT SHAKING SIDE RAILS OF BED AND YELLING. SPOKE WITH DR MILLER AND RECIEVED ORDERS. PT GIVEN 1 MG HALDOL IV.
[2020-02-20 06:05] LABS: ABSOLUTE LYMPHOCYTES 0.2 thou/uL (0.8-5.3); ABSOLUTE MONOCYTES 0.5 thou/uL (0.0-1.2); ABSOLUTE NEUTROPHILS 9.7 thou/uL (1.6-8.1); BASOPHILS 0.2 %; HEMATOCRIT 28.5 % (37.0-47.0); HEMOGLOBIN 9.2 gm/dL (12.0-15.0); LYMPHOCYTES 1.7 %; MCH 23.9 pg (26.0-34.0); MCHC 32.4 g/dL (28.0-37.0); MCV 73.7 fL (80.0-100.0); MONOCYTES 5.1 %; MPV 7.7 fl. (7.2-11.1); NUCLEATED RBCS 0 /100WBC; PLATELET COUNT* 224 thou/uL (150-400); RBC 3.86 mil/uL (4.20-5.00); RDW-CV 19.6 % (10.5-14.5); WBC 10.4 thou/uL (4.0-11.0)
[2020-02-20 06:17] LABS: PREALBUMIN 17.4 mg/dL (18.0-35.7)
[2020-02-20 06:31] LABS: ALBUMIN 2.5 g/dL (3.4-5.0); CALCIUM 8.2 mg/dL (8.5-10.1); CREATININE 1.3 mg/dL (0.6-1.3); POTASSIUM 4.6 mmol/L (3.5-5.1); TOTAL BILIRUBIN 0.6 mg/dL (<0.1-1.0); TOTAL PROTEIN 6.3 g/dL (6.4-8.2)
--- NOTE | 2020-02-20 10:51 | NUR ---
WOUND NURSE: ATTEMPT MADE TO SEE PATIENT TODAY. PT NOT STABLE AT THIS TIME AND PRIMARY NURSE REQUEST PT NOT BE DISTURBED. FLYNN, PRIMARY NURSE, REPORTS AREAS WE ARE MONITORING ARE PROGRSSING TO HEALING. DENIES QUESTIONS OR NEEDS REGUARDING WOUND CARE AT THIS TIME.
[2020-02-20 13:46] LABS: BF RBC <1000 /mm3; TOTAL CELL COUNT 429 /mm3
[2020-02-20 13:52] LABS: CLARITY HAZY; TOTAL VOLUME 960 ml
[2020-02-20 13:53] LABS: BF OTHER CYTO TO FOLLOW
[2020-02-20 13:54] LABS: SOURCE PLEURAL FLUID
[2020-02-20 13:57] LABS: BF LYMPHOCYTES 33 %; BF MONOCYTES 4 %; BF POLYS 63 %; BF TISSUE 9 /100 WBC
[2020-02-20 15:27] LABS: ABSOLUTE LYMPHOCYTES 0.3 thou/uL (0.8-5.3); ABSOLUTE MONOCYTES 0.7 thou/uL (0.0-1.2); BASOPHILS 0.3 %; HEMATOCRIT 25.4 % (37.0-47.0); HEMOGLOBIN 8.2 gm/dL (12.0-15.0); LYMPHOCYTES 3.5 %; MCH 23.5 pg (26.0-34.0); MCHC 32.4 g/dL (28.0-37.0); MCV 72.6 fL (80.0-100.0); MONOCYTES 8.7 %; MPV 7.6 fl. (7.2-11.1); NUCLEATED RBCS 0 /100WBC; PLATELET COUNT* 191 thou/uL (150-400); POLYS 87.5 %; RDW-CV 19.9 % (10.5-14.5)
[2020-02-20 15:38] LABS: ALBUMIN 2.3 g/dL (3.4-5.0); CALCIUM 8.1 mg/dL (8.5-10.1); CREATININE 1.2 mg/dL (0.6-1.3); MAGNESIUM 1.9 mg/dL (1.8-2.4); POTASSIUM 3.7 mmol/L (3.5-5.1); TOTAL BILIRUBIN 0.5 mg/dL (<0.1-1.0); TOTAL PROTEIN 5.6 g/dL (6.4-8.2)
--- NOTE | 2020-02-20 15:47 | NUR ---
ICU rounds: Wearing bipap, 1:1 as needed for bipap compliance. Vtach, cardiology consulted, amio gtt. Thora today. On precedex
[2020-02-20 16:10] LABS: BE 1.8 mmol/L (-2 to +3); PCO2 VENOUS 38.9 mmHg (41.0-51.0); PO2 VENOUS 50.3 mmHg (35.0-45.0)
--- NOTE | 2020-02-20 17:17 | 2DMMODE ---
[place] [address] 2 D/M-MODE ECHOCARDIOGRAM Name: YUE GODFREY Room: [address] ADM IN M.R.#: [id number] Admission: 02/16/20 Attend Phys: Hira Ren, Discharge: Date of : 36 Date of Service: 02/20/20 1716 Report #: [id number] THIS REPORT FOR: cc: Je Alanis MD, Dennis R MD Liston,Nigel Chawla MD [facility] ~ APPROVED REPORT Study performed: 02/20/2020 15:17:01 EXAM: Comprehensive 2D, Doppler, and color-flow Echocardiogram BSA: 1.70 Left Ventricle The left ventricle is normal size. There is global hypokinesis of the left ventricle. There is normal left ventricular wall thickness. Left ventricular ejection fraction is severely decreased. LVEF is 25-30%. Transmitral Doppler flow pattern suggests impaired LV relaxation. Right Ventricle The right ventricle is normal size. The right ventricular systolic function is normal. Atria The left atrium size is normal. The right atrium size is normal. Aortic Valve The Aortic valve is sclerotic. No aortic regurgitation is present. Moderate aortic stenosis. Mitral Valve There is mitral annular calcification. Moderate mitral regurgitation. No evidence of mitral valve stenosis. Tricuspid Valve The tricuspid valve is normal in structure. Trace tricuspid regurgitation. Pulmonic Valve Pulmonic valve [place] [address] 2 D/M-MODE ECHOCARDIOGRAM Name: YUE GODFREY Room: [address] IN .R.#: [id number] Admission: 02/16/20 Attend Phys: Hira Ren, Discharge: Date of : 36 Date of Service: 02/20/201715 Report #: [id number] Great Vessels The aortic root is normal in size. IVC is dilated and collapses <50% with inspiration. <Conclusion> The left ventricle is normal size. There is normal left ventricular wall thickness. Left ventricular ejection fraction is severely decreased. LVEF is 25-30%. Transmitral Doppler flow pattern suggests impaired LV relaxation. There is global hypokinesis of the left ventricle. Moderate aortic stenosis. Moderate mitral regurgitation. IVC is dilated and collapses <50% with inspiration. <ELECTRONICALLY SIGNED> By: Nigel Pepe MD, FACC 02/20/201715 15 15 Nigel Ppee MD, FACC /INF
--- NOTE | 2020-02-20 18:44 | NUR ---
PT A/O TO SELF.ON 1L O2 NC CURRENTLY.BIPAP MUCH POSSIBLE WHEN TOLERATED.PT HAD WHAT APPEARED TO BE RUNS OF VTACH-CARDIOLOGY CONSULTED WITH AMIO GTT STARTED.PRECEDEX GTT OFF DUE TO NO AGITATION.STARTED ON VENUS DRIP FOR LOW BP.RIGHT THORACENTESIS COMPLETED-960ML REMOVED.ECHO COMPLETED.DAUGHTER JOHNSON VISITED AT [facility].ROGERIO GONZALES GRANDDAUGHTER IS VISITOR 02/21/20.WILL CONTINUE TO MONITOR FOR DURATION OF SHIFT.
[2020-02-21] VITALS (32 sets, daily range): BP systolic 105–156; BP diastolic 52–102
[2020-02-21 03:50] LABS: ALBUMIN 2.8 g/dL (3.4-5.0); CALCIUM 8.6 mg/dL (8.5-10.1); CREATININE 1.3 mg/dL (0.6-1.3); MAGNESIUM 2.5 mg/dL (1.8-2.4); POTASSIUM 4.5 mmol/L (3.5-5.1); TOTAL BILIRUBIN 0.7 mg/dL (<0.1-1.0); TOTAL PROTEIN 6.7 g/dL (6.4-8.2)
[2020-02-21 03:55] LABS: ABSOLUTE LYMPHOCYTES 0.4 thou/uL (0.8-5.3); ABSOLUTE MONOCYTES 0.3 thou/uL (0.0-1.2); ABSOLUTE NEUTROPHILS 19.5 thou/uL (1.6-8.1); BASOPHILS 0.1 %; HEMATOCRIT 31.9 % (37.0-47.0); HEMOGLOBIN 10.1 gm/dL (12.0-15.0); LYMPHOCYTES 1.7 %; MCH 23.1 pg (26.0-34.0); MCHC 31.7 g/dL (28.0-37.0); MCV 72.7 fL (80.0-100.0); MONOCYTES 1.3 %; MPV 7.8 fl. (7.2-11.1); NUCLEATED RBCS 1 /100WBC; POLYS 96.9 %; RBC 4.38 mil/uL (4.20-5.00); RDW-CV 19.9 % (10.5-14.5); WBC 20.2 thou/uL (4.0-11.0)
[2020-02-21 03:56] LABS: PREALBUMIN 21.5 mg/dL (18.0-35.7)
[2020-02-21 03:59] LABS: PLATELET COUNT* 388 thou/uL (150-400)
--- NOTE | 2020-02-21 05:39 | NUR ---
ASSUMED CARE AT 1900H, ON NC AT 1LPM AND INCREASE TO 3LPM AND TOLERATED. PT REFUSED TO WEAR HER BIPAP. AT TIMES CONFUSED AND RESTLESS, PRECEDEX RE-STARTED. ORIENT PT AND KEPT SAFE. LUNG CRACKLES SOUND DECREASED. PT WAS MORE RELAXED. UPDATE GIVEN TO DTR. CONTINUE MONITORING AND TOWARDS GOALS. VENUS STOP AT 0500H.
--- NOTE | 2020-02-21 18:50 | NUR ---
PT A&O x4. NIH 9, LT SIDED PARESIS, COMMUNICATION INTACT. TOLERATING DIET, NEEDS A SET UP WITH HER MEALS. PURE WICK CATH IN PLACE, WORKING GOOD. VSS. SON IN THE UNIT FOR FEW HOURS. REPORT GIVEN TO GLENNY GUNDERSON.
--- NOTE | 2020-02-21 20:21 | NUR ---
O2 SUPPORT TITRATED AND TURNED OFF AT 1500, SATS >92% IN RA. PRECEDEX DRIP DOWN TO 0.3 MCG/KG/MIN, CALM AND COOPERATIVE. COMPLETE BATH PROVIDED. OKAY FOR PUREED WITH NECTAR THICK LIQUID PER SPEECH. INTAKE VERY MINIMAL, ENCOURAGED.
[2020-02-22] VITALS (14 sets, daily range): BP systolic 130–156; BP diastolic 67–102
[2020-02-22 04:41] LABS: HEMATOCRIT 30.4 % (37.0-47.0); HEMOGLOBIN 9.6 gm/dL (12.0-15.0); MCH 23.1 pg (26.0-34.0); MCHC 31.6 g/dL (28.0-37.0); MCV 73.1 fL (80.0-100.0); MPV 7.6 fl. (7.2-11.1); NUCLEATED RBCS 0 /100WBC; RBC 4.15 mil/uL (4.20-5.00); RDW-CV 20.2 % (10.5-14.5); WBC 12.8 thou/uL (4.0-11.0)
[2020-02-22 04:45] LABS: PLATELET COUNT* 248 thou/uL (150-400)
[2020-02-22 04:59] LABS: ALBUMIN 2.3 g/dL (3.4-5.0); CREATININE 1.4 mg/dL (0.6-1.3); POTASSIUM 3.2 mmol/L (3.5-5.1); TOTAL BILIRUBIN 0.8 mg/dL (<0.1-1.0)
--- NOTE | 2020-02-22 05:58 | NUR ---
VITALS STABLE, AFEBRILE. PT REMAINS ON RA. BM X2, LIQUID/JELLY. SAMPLE SENT TO LAB TO R/O C.DIFF. PT DENIES PAIN. DID NOT SLEEP MUCH THROUGH THE NIGHT. ORIENTED TO SELF AND SITUATION, KNOWS SHE'S IN A HOSPITAL BUT UNSURE WHICH ONE. REORIENTATION PROVIDED NEEDED. OTHERWISE UNEVENTFUL NIGHT. Q2 TURNS FOR SKIN INTEGRITY. WILL CONTINUE MONITORING FOR THE REMAINDER OF SHIFT.
[2020-02-22 07:02] LABS: ABSOLUTE LYMPHOCYTES 0.3 thou/uL (0.8-5.3); ABSOLUTE MONOCYTES 0.5 thou/uL (0.0-1.2); ANISOCYTOSIS 1+; HYPOCHROMASIA 1+; OVALOCYTES Occasional; PLATELET ESTIMATE ADEQUATE; POIKILOCYTOSIS 1+
[2020-02-22 11:06] LABS: BODY FLUID PROTEIN 1.3 g/dL (())
[2020-02-22 15:06] LABS: BODY FLUID PH 7.6 (Not Estab.)
--- NOTE | 2020-02-22 16:58 | NUR ---
PT RESTING IN BED THROUGHOUT SHIFT,REPOSITIONED FREQUENTLY. PT INCONTINENT OF STOOL,CLEANED AND OINTMENT APPLIED. PT ASSISTED WITH MEALS,POOR APPETITE AND ORAL INTAKE. KEN CATH DRAINING DARK YELLOW URINE.PLEASANTLY CONFUSED BUT NOT IMPULSIVE
[2020-02-23] VITALS: BP 150/73
[2020-02-23 04:00] VITALS: BP 134/82
--- NOTE | 2020-02-23 04:40 | NUR ---
ASSUMED PATIENT CARE AT 1900. ASSESSMENT COMPLETED CHARTED. CARDIAC MONITOING IN PLACE. HOURLY ROUNDING IN PLACE FOR PATIENT SAFETY. FALL PRECAUTIONS IN PLACE FOR PATIENT SAFETY. BED LOCKED AND IN LOWEST POSITION. CLWR. PATIENT HAD ONE BM DURING SHIFT. BM WAS LOOSE.
[2020-02-23 05:10] LABS: ABSOLUTE LYMPHOCYTES 0.2 thou/uL (0.8-5.3); ABSOLUTE MONOCYTES 0.4 thou/uL (0.0-1.2); ABSOLUTE NEUTROPHILS 11.4 thou/uL (1.6-8.1); BASOPHILS 0.1 %; HEMATOCRIT 30.2 % (37.0-47.0); HEMOGLOBIN 9.7 gm/dL (12.0-15.0); LYMPHOCYTES 1.3 %; MCH 23.4 pg (26.0-34.0); MCV 73.2 fL (80.0-100.0); MONOCYTES 3.4 %; MPV 7.9 fl. (7.2-11.1); NUCLEATED RBCS 0 /100WBC; PLATELET COUNT* 240 thou/uL (150-400); POLYS 95.2 %; RBC 4.13 mil/uL (4.20-5.00); RDW-CV 20.5 % (10.5-14.5)
[2020-02-23 05:17] LABS: ALBUMIN 2.4 g/dL (3.4-5.0); CALCIUM 8.1 mg/dL (8.5-10.1); CREATININE 1.3 mg/dL (0.6-1.3); TOTAL BILIRUBIN 0.6 mg/dL (<0.1-1.0); TOTAL PROTEIN 5.8 g/dL (6.4-8.2)
[2020-02-23 05:18] LABS: POTASSIUM 2.8 mmol/L (3.5-5.1)
--- NOTE | 2020-02-23 10:35 | CON ---
[address] [address] CONSULTATION Name: TANESHA GODFREYN Nilda Room: [address] ADM IN M.R.#: [id number] Admission: 02/16/20 Attend Phys: Hira Ren MD Discharge: Date of : 36 Report #: [id number] THIS REPORT FOR: //name// cc: Je Alanis MD, Dennis R MD ~ DATE OF SERVICE: 02/17/2020 PRIMARY CARE PHYSICIAN: Je Alanis MD Please note at the time of this dictation, the patient was seen and physically examined by myself. HISTORY OF PRESENT ILLNESS: This is an 80-year-old female who was residing in a [facility]. It was noted by the staff that she had not been eating and feeding herself and was poorly responsive yesterday morning. She had recently been here at [facility] and evaluated for pneumonia and had been placed on antibiotics. Prior to her most recent hospitalization here at [facility], she has been hospitalized over at [facility] before as well. Her previous hospitalizations at [facility] have included pneumonia, but also she has had a history of bleeding in her intestines "per daughter" and she has had EGD and colonoscopies done over there in the past. She states her mother does not take any ibuprofen that she is aware of and is unaware of any vomiting or having any issues with that here recently. After the patient was admitted to the hospital, it was noted last evening that she had some old coffee-ground appearing emesis that had been dried in her mouth and lips, but nothing was on her gown at that time, may have occurred prior to her coming in. In talking with the daughter, she has concerns with some progression of her dementia as well. ALLERGIES: ASPIRIN. MEDICATIONS: From home include Brovana, doxycycline and Augmentin. She is also on iron supplement, hydralazine, Lasix, lisinopril, multivitamin, calcium, pantoprazole 40 b.i.d., potassium chloride, Zetia, Lantus, Lyrica, NovoLog, milk of mag, clonazepam, Percocet and Tylenol. 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 PAST SURGICAL HISTORY: Cholecystectomy. FAMILY HISTORY: Noncontributory. SOCIAL HISTORY: The patient resides in a nursing facility. Denies any alcohol, tobacco [place] [address] CONSULTATION Name: YUE GODFREY Room: [address] IN [facility]#: [id number] Admission: 02/16/20 Attend Phys: Hira Ren MD Discharge: Date of : 36 Report #: [id number] REVIEW OF SYSTEMS: Twelve-point review of systems is essentially negative except what is mentioned in the HPI. PHYSICAL EXAMINATION: VITAL SIGNS: Temperature 36.9, pulse 96, respirations 18, blood pressure 138/85. HEART: Regular rate and rhythm. LUNGS: Diminished with a few expiratory wheezes throughout. ABDOMEN: Soft, round, positive bowel sounds in all 4 quadrants with some mild tenderness noted in the upper quadrants. LABORATORY DATA: Hemoglobin on admission was 9.6, it is now 8.9; white count is 16.3, platelets 215. CRP is 152. Her GFR is 39. BUN on admission was 52 and she is down to 34 with a creatinine of 1.3. Chest x-ray shows stable consolidation in the right upper lobe. IMPRESSION: 1. Hematemesis. 2. Acute anemia. 3. Leukocytosis. 4. Pneumonia, recurrent. 5. Chronic kidney disease. 6. Dementia. PLAN: 1. EGD today with Dr. Melchor. 2. Protonix IV b.i.d. 3. Obtain medical records from [facility] for further evaluation of her previous EGD and colonoscopies. 4. Further recommendations to be made once Dr. Melchor sees the patient later today. Thank you for allowing us to participate in this patient's care. Please do not hesitate to call with any questions in regard to this consult. <ELECTRONICALLY SIGNED> By: Lonnie Melchor DO 02/23/20 1035 [id number] [id number] Melchor DO /nt
--- NOTE | 2020-02-23 15:45 | NUR ---
FULL REPORT VERBALIZED TO DEZ FREEMAN. DTR UPDATED VIA PHONE OF TRANSFER OF ROOMS. PT TRANSFERED VIA BED W/ ALL BELONGINGS, MEDICATIONS, SUPPLIES, AND CHART VIA BED BY PCT. PT INFORMED OF TRANSFER. STATED "OK". DENIED FURTHER QUESTIONS. PICC, PIV X2, AND KEN IN PLACE AT TIME OF TRANSFER. Brooks POMPA RN
[2020-02-23 16:06] VITALS: BP 143/80
--- NOTE | 2020-02-23 16:19 | NUR ---
RECIEVED REPORT FROM DEZ MITCHELL IN ICU OF EXPECTED TRANSFER AT 1453- PT ARRIVED TO UNIT VIA BED X2 TO ROOM 225 AT 1545- CORPORATE SERVICES MANAGER IN PLACE ORDERED, TRACING SR WITH 1ST DEGREE- PT NOTED A&O X1 WITH NOTED CONFUSSION- RESPONDS BY YES OR NO TO QUESTIONS OCCASSIONALY- KEN IN PLACE D/D CLEAR YELLOW URINE- VS 98.2 18 143/80 90 93% ON RA- IV NOTED TO RIGHT FA INTACT AND SL- RIGHT UE PICC NOTED C/D/I, K+ INFUSSING INDICATED FOR REPLACEMENT PER PROTOCOL- PT NOTED TO ARLENE BEASLEY BM AT TIME OF TRANSFER-CALL LIGHT AND PERSONAL BELONGING WITH IN REACH- HOURLY ROUNDS IN PLACE R/T SAFETY/NEEDS- ALL NEEDS MET AT THIS TIME-WCTANYA
[2020-02-24] VITALS: BP 147/81
[2020-02-24 04:00] VITALS: BP 131/66
[2020-02-24 07:01] LABS: ABSOLUTE LYMPHOCYTES 0.2 thou/uL (0.8-5.3); ABSOLUTE MONOCYTES 0.3 thou/uL (0.0-1.2); ABSOLUTE NEUTROPHILS 13.5 thou/uL (1.6-8.1); BASOPHILS 0.3 %; HEMOGLOBIN 9.5 gm/dL (12.0-15.0); LYMPHOCYTES 1.6 %; MCH 23.1 pg (26.0-34.0); MCHC 31.8 g/dL (28.0-37.0); MCV 72.7 fL (80.0-100.0); MONOCYTES 2.2 %; MPV 7.3 fl. (7.2-11.1); NUCLEATED RBCS 0 /100WBC; PLATELET COUNT* 227 thou/uL (150-400); POLYS 95.9 %; RBC 4.12 mil/uL (4.20-5.00); RDW-CV 20.1 % (10.5-14.5); WBC 14.1 thou/uL (4.0-11.0)
[2020-02-24 07:13] LABS: ALBUMIN 2.2 g/dL (3.4-5.0); CALCIUM 8.2 mg/dL (8.5-10.1); CREATININE 1.2 mg/dL (0.6-1.3); POTASSIUM 3.8 mmol/L (3.5-5.1); TOTAL BILIRUBIN 0.7 mg/dL (<0.1-1.0); TOTAL PROTEIN 5.9 g/dL (6.4-8.2)
--- NOTE | 2020-02-24 07:15 | NUR ---
CHANGE OF SHIFT BEDSIDE REPORT GIVEN PATIENT SEEN AT BEDSIDE, IN BED ASLEEP ASSUMED PATIENT CARE
[2020-02-24 08:00] VITALS: BP 167/74
--- NOTE | 2020-02-24 10:02 | NUR ---
assumed care of patient. Report received
[2020-02-24 12:41] VITALS: BP 135/69
[2020-02-24 17:34] VITALS: BP 102/60
[2020-02-25 00:54] VITALS: BP 128/58
[2020-02-25 04:39] VITALS: BP 129/70
[2020-02-25 06:00] LABS: HEMATOCRIT 30.7 % (37.0-47.0); HEMOGLOBIN 9.7 gm/dL (12.0-15.0); MCHC 31.7 g/dL (28.0-37.0); MCV 72.5 fL (80.0-100.0); MPV 7.9 fl. (7.2-11.1); NUCLEATED RBCS 0 /100WBC; PLATELET COUNT* 223 thou/uL (150-400); RBC 4.23 mil/uL (4.20-5.00); RDW-CV 20.2 % (10.5-14.5); WBC 19.2 thou/uL (4.0-11.0)
[2020-02-25 06:25] LABS: ALBUMIN 2.4 g/dL (3.4-5.0); CALCIUM 8.1 mg/dL (8.5-10.1); CREATININE 1.4 mg/dL (0.6-1.3); POTASSIUM 3.8 mmol/L (3.5-5.1); TOTAL BILIRUBIN 0.8 mg/dL (<0.1-1.0); TOTAL PROTEIN 5.8 g/dL (6.4-8.2)
[2020-02-25 06:32] LABS: PREALBUMIN 29.1 mg/dL (18.0-35.7)
--- NOTE | 2020-02-25 06:42 | NUR ---
ASSESSMENT: PT TRANSFERRED FROM [facility] AT APPROXIMATELY 2030. PT REMAIN ALERT AND ORIENT TIMES ONE. DID NOT KNOW HER BD, THE CURRENT DATE, NOR WHERE SHE WAS AT. PT IS A DNR, NOTED. KEN PATENT. LOOSE RUNNY YELLOW STOOL NOTED TIMES TWO. SR-SA-ST PER MONITOR. VSS, AFEBRILE. COCCYX AREA, RED, EXCORIATED AND OPEN TO AIR UPON TRANSFER. MYPELEX APPLIED FOR COMFORT AND PROTECTION. PICC INTACT. SLOW PROGRESS TOWARDS DC GOALS. WILL CONTINUE TO MONITOR,
[2020-02-25 07:04] LABS: ABSOLUTE LYMPHOCYTES 0.8 thou/uL (0.8-5.3); ABSOLUTE MONOCYTES 0.2 thou/uL (0.0-1.2); ABSOLUTE NEUTROPHILS 18.2 thou/uL (1.6-8.1); PLATELET ESTIMATE ADEQUATE
[2020-02-25 07:05] LABS: ANISOCYTOSIS 2+; HYPOCHROMASIA 1+
[2020-02-25 07:30] VITALS: BP 144/69
--- NOTE | 2020-02-25 11:29 | NUR ---
WOUND NURSE: PATIENT SEEN FOR FOLLOW UP ASSESSMENT PERTAINING TO LESIONS ON THE BUTTOCKS, SACRUM AND COCCYX AREA WHICH PRESENTS WITH EXCORIATION, ONE CIRCIFORM SHALLOW LESION ALONG THE LEFT BUTTOCK. PATIENT ALSO WITH MULTIPLE SKIN TAGS IN THE ALSO. CLEANSED WITH SOAP AND WATER, RINSED WITH WATER, THEN PATTED DRY. APPLIED Z-GUARD MOISTURE BARRIER PASTGE TO AFFECTED AREA. PLAN TO CONTINUE THIS Q SHIFT AND PRN. PATIENT IS NOT TEACHEABLE.
[2020-02-25 11:44] LABS: SOURCE THORACENTESIS
[2020-02-25 12:23] VITALS: BP 127/55; BP 132/58
--- NOTE | 2020-02-25 12:23 | NUR ---
Plan dc back to [facility] tomorrow, updated dtr in room. Faxed updated clinicals, updated Kathryn at [facility]. Pt will need a repeat covid test prior to dc, CM to fax once available. Dtr in agreement with POC. [facility] Crespo p:[phone] f:[phone]
--- NOTE | 2020-02-25 12:59 | CON ---
[address] [address] CONSULTATION Name: TANESHA GODFREYN Nilda Room: [address] IN M.R.#: [id number] Admission: 02/16/20 Attend Phys: Hira Ren MD Discharge: Date of : 38 Report #: [id number] THIS REPORT FOR: //name// cc: Je Alanis MD, Dennis R MD ~ DATE OF SERVICE: 02/17/2020 Consult has been requested by Dr. Ren. INDICATION FOR CONSULTATION: Pulmonary infiltrate and shortness of breath. HISTORY OF PRESENT ILLNESS: This is an 80-year-old female. She was recently admitted to this hospital. The patient had been admitted with altered mental status. She does have significant dementia. She had presented with decreased O2 saturations. She was noted to have a large infiltrate in the right upper and middle lobe. We treated her with Zosyn as well as doxycycline. The patient improved significantly. She also was tested for COVID with both antigen and PCR, and these were negative. The patient was therefore subsequently discharged in a stable condition. The patient is now admitted again. She was noted to be in acute renal failure yesterday, had altered mental status and also was reported to have had coffee ground emesis. She was evaluated by the GI service as well who consider performing an EGD and/or considering her respiratory status, decided to hold off. Note that the patient has also noted to be DNR. The patient currently on 6 liters nasal cannula. She still has a metabolic acidosis. She is unable to provide a detailed history and is awake, confused. She remains high risk for aspiration. The patient is unable to provide a detailed history either. PAST MEDICAL HISTORY: Recent admission with extensive pneumonia as above; COPD is mentioned on the records; however, she reported to be a lifetime nonsmoker; diabetes, hypertension, gastroesophageal reflux disease, bradycardia, hyperlipidemia, TIAs; mental delay or retardation, I do not have a measure or her left ventricular ejection fraction available. The patient's baseline creatinine is 1.0, which is normal. SOCIAL HISTORY: Resident of [facility]. No known history of smoking, ethanol abuse or drug abuse. CURRENT MEDICATIONS: List in [facility] reviewed. HOME MEDICATIONS: List in [facility], also reviewed. Note that she was discharged on Augmentin and doxycycline. FAMILY HISTORY: [place] [address] CONSULTATION Name: YUE GODFREY Room: [address]#: [id number] Admission: 02/16/20 Attend Phys: Hira Ren MD Discharge: Date of : 36 Report #: [id number] PHYSICAL EXAMINATION: GENERAL: She appears to be short of breath, but is maintaining O2 saturation on 6 liters oxygen via nasal cannula, is saturating around 95%. Her respiratory rate was elevated to around 25 at the time of my examination. She also has mild tachycardia around 100-105. Blood pressure is 138/85. She is afebrile with a temperature of 36.9. HEENT: Head is normocephalic and atraumatic. Pupils are equal and reactive. There is no throat erythema. Throat examination, however, is limited due to limited patient cooperation. NECK: Does not show raised JVP, asymmetry, mass or lymph nodes. CHEST: Symmetrical expansion on inspection and palpation. On auscultation, breath sounds are bilaterally equal. I do not hear any added sounds. HEART: Regular. There is no murmur. ABDOMEN: Soft and nontender. 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 There is no calf tenderness or swelling of lower extremities noted. NEUROLOGICAL: Moves all extremities bilaterally equally and spontaneously with no focal deficit identified. LABORATORY DATA: The patient's chest x-rays are as discussed above. The patient's CBC as well as chemistries also as discussed above. Arterial blood gases do show metabolic acidosis as above. ASSESSMENT AND PLAN: 1. Severe healthcare-associated pneumonia/pulmonary infiltrate. I would, at this time, treat the patient aggressively. We will continue with Zosyn. I added Levaquin as well as linezolid. We will do a nasal swab for MRSA. If possible, we will do a sputum culture. If the patient's condition improves, then we will cut back on therapy accordingly. 2. Aspiration. I would recommend being cautious and allowing the patient to orally. If the patient continues to have altered mental status, then I will perhaps inclined to hold off on a swallow evaluation today and keep her n.p.o. and then reassess tomorrow. 3. Acute renal failure. I agree with IV fluids, note that she does have a metabolic acidosis as well. 4. Upper gastrointestinal bleed. Continue with Protonix IV b.i.d. GI service on the case, will watch hemoglobin. 5. History of diabetes. 6. Severe malnutrition. Note that the patient also had fluid overload during the last hospitalization. At this time, she does need fluids as above. I recommend watching this closely. 7. Possible history of chronic obstructive pulmonary disease. I will continue with nebulized bronchodilators, critical care to this. I went ahead and ordered 2 doses of Solu-Medrol as well. I may, however, cut back the nebulized bronchodilators. 8. The patient is critically ill at this time. [facility] [address] [place] [address] CONSULTATION Name: YUE GODFREY Room: [address] IN [facility]#: [id number] Admission: 02/16/20 Attend Phys: Hira Ren MD Discharge: Date of : 38 Report #: [id number] Total time spent providing critical care to this patient today exceeds 45 minutes. <ELECTRONICALLY SIGNED> By: Odin Marcial MD 02/25/20 1259 1245 [id number] Marcial MD /nt
[2020-02-25 16:35] VITALS: BP 120/73
--- NOTE | 2020-02-25 19:08 | NUR ---
A&O X PERSON. LUNGS WITH EXP. WHEEZES THROUGHOUT AND COARSE IN LOWER LOBES. HEART TONES REGULAR WITH PVC'S. +BS X 4 QUADS. BUTTOCKS EXCORIATED AND JARED CAME AND PROVIDED CREAM FOR BUTTOCKS. 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 LEFT HEEL WITH SMALL BLISTER AREA. LEFT FOOT IN HEEL PROTECTOR. INCONTINENT BOWEL THIS AM. KEN CATH INTACT AND PATENT OF YELLOW URINE WITH SEDIMENT. EF IS 25-30%. PICC LINE IN RIGHT UPPER ARM ALL 3 PIG TAILS FLUSH WITHOUT DIFFICULTY. ALSO HAS 2 SALINE LOCKS IN RIGHT FOREARM BOTH INTACT AND PATENT. CALL LIGHT WITHIN REACH. WILL CONTINUE TO MONITOR. PT IS FEEDER AND ATE APPROX. 25% OF DINNER.
[2020-02-25 20:10] VITALS: BP 114/68
[2020-02-26] VITALS: BP 121/56
[2020-02-26 04:00] VITALS: BP 134/74
--- NOTE | 2020-02-26 07:01 | NUR ---
PT CARE ASSUMED AT 1930. SAT MAINTAINED IN O2. DENIES PAIN. PT ONLY RESPONDS TO HER NAME. CALL LIGHT WITHIN REACH AND BED IN LOW POSITION. HOURLY ROUNDING DONE FOR PT SAFETY.
[2020-02-26 07:30] VITALS: BP 130/70
[2020-02-26 08:40] LABS: ABSOLUTE NEUTROPHILS 18.1 thou/uL (1.6-8.1); HEMOGLOBIN 9.1 gm/dL (12.0-15.0); MCHC 31.5 g/dL (28.0-37.0); MONOCYTES 4.9 %; PLATELET COUNT* 175 thou/uL (150-400); WBC 19.5 thou/uL (4.0-11.0)
[2020-02-26 08:42] LABS: ABSOLUTE LYMPHOCYTES 0.4 thou/uL (0.8-5.3); HEMATOCRIT 28.8 % (37.0-47.0); LYMPHOCYTES 2.3 %; MCH 23.2 pg (26.0-34.0); MCV 73.6 fL (80.0-100.0); MPV 7.9 fl. (7.2-11.1); NUCLEATED RBCS 0 /100WBC; POLYS 92.8 %; RBC 3.92 mil/uL (4.20-5.00); RDW-CV 21.1 % (10.5-14.5)
[2020-02-26 08:47] LABS: ALBUMIN 2.3 g/dL (3.4-5.0); CREATININE 1.2 mg/dL (0.6-1.3); TOTAL BILIRUBIN 0.8 mg/dL (<0.1-1.0); TOTAL PROTEIN 5.5 g/dL (6.4-8.2)
--- NOTE | 2020-02-26 11:07 | PATH ---
[address] [address] PATHOLOGY RPT PROCEDURE Name: YUE GODFREY Room: [address] IN [facility]#: [id number] Admission: 02/16/20 Date of : 36 Discharge: Report #: [id number] Path Case #: [id number] Note [facility] Accession Number: [id number] TESTS RESULT FLAG UNITS REF RANGE LAB Clinician Provided Cytology Information No. of containers..01 Other (Miscellaneous) Source: RIGHT PLEURAL FLUID DIAGNOSIS: RIGHT PLEURAL FLUID INCONCLUSIVE. THIS INTERPRETATION INCLUDES EVALUATION OF A CELL BLOCK. COMMENT, VERY RARE HIGHLY ATYPICAL CELLS ARE SEEN WHICH ARE POSITIVE FOR JAIRO-EP4, CK7 AND TTF1. THEY ARE NEGATIVE FOR CALRETININ, P40, CK20,ER,MAMMOGLOBIN. CANNOT RULE OUT MALIGNANCY. SUGGEST BIOPSY. Signed out by: William Boo MD, Pathologist NPI- [id number] Performed by: William Bundy, Dialysis Clinical Manager ([facility]) Gross description: 01 30ML, YELLOW, 1TP 1CB /LCS 02/23/2020 0743 Local FLAG LEGEND: L-Low Normal,H-High Normal,LL-Alert Low,HH-Alert High <-Panic Low,>-Panic High,A-Abnormal,AA-Critical Abnormal Performed at: [address] [place] [address] Winston Boo MD, Specimen Comment: A courtesy copy of this report has been sent to [phone] Specimen Comment: [phone] Specimen Comment: Report sent to / DR DO Performed at: [address], [place], [place] [id number] MD Winston Boo MD Phone: [phone]
[2020-02-26 11:30] VITALS: BP 122/56
--- NOTE | 2020-02-26 11:46 | NUR ---
LEFT HEEL BLISTER MEASURES 2CM X 1.4 CM. HEEL PROTECTORS ON LEFT HEEL. AKA ON RIGHT. BUTTOM EXCORIATED AND BLEEDING AFTER CLEANSED WITH SOAP AND WATER. BARRIER CREAM PASTE APPLIED.
--- NOTE | 2020-02-26 12:50 | NUR ---
Anticipate dc tomorrow. Plan thora today, pulm following. Pt will need a repeat covid test prior to dc.
[2020-02-26 18:43] VITALS: BP 130/67
--- NOTE | 2020-02-26 19:51 | NUR ---
A&O X 1. CONFUSED. OCC. ANSWERS SIMPLE YES AND NO QUESTIONS. INCONTINENT BOWEL THIS AM. CLEANSED BUTTOM AND PUT BARRIER CREAM EXCORIATED BUTTOM. INDWELLING KEN CATH INTACT AND PATENT OF CLOUDY YELLOW URINE. LUNGS CLEAR IN UPPER LOBES AND DIMINISHED IN RIGHT BASE. PT TO GO TO [facility] TODAY AND THEY SENT HER BACK SAYING SHE DID NOT HAVE ENOUGH FLUID TO TAKE OFF. SAT'S DROPPED WHEN RT WAS IN ROOM AND PT WAS UP ON 6L NC. THEN HAD TO BE PUT ON NON-REBREATHER. DR. MILLER WAS NOTIFIED AND CHEST-X-RAY OBTAINED AND SHOWED WHITE OUT OF RIGHT LUNG. RT PUT PT ON BI-PAP BUT PATIENT WOULD NOT KEEP MASK ON. DR. MILLER NOTIFIED THAT PT WAS PUT ON NON-REBREATHER. DR. MILLER STATED LOOKS LIKE PT HAS MUCUS PLUG IN RIGHT MAIN STEAM AND THAT PT NEEDS TO STAY ON BI-PAP. HE ALSO ORDERED 1:1 SITTER TO KEEP BI-PAP ON. NEW ORDERES OBTAINED AND CARRIED OUT. CHARGE NURSE NOTIFIED OF SITUATION. 1-1 SITTER OBTAINED. 1MG ATIVAN GIVEN AT TIME BI-PAP PUT ON. POTASSIUM WAS 3.0 TODAY. REPLACING POTASSIUM WITH 20MEQ IV. INFORMED PT THAT SHE NEEDS TO KEEP BI-PAP ON AND SHE STATES OK BUT THEN TRIES TO PULL IT OFF. SHE DOES NOT UNDERSTAND IMPORTANCE OF KEEPING IT ON. PT NOW NPO WITH D5W AT 50MLS/HR. CALL LIGHT WITHIN REACH. PT IS RIGHT AKA. HEEL PROTECTOR ON LET FOOT. LEFT HEEL WITH 2 CM X 1.4 CM BLISTER. HAS PICC RIGHT UPPER ARM AND SALINE LOCK X 2 IN RIGHT FOREARM. WILL CONTINUE TO MONITOR. 02 SAT ON BI-PAP 95%.
[2020-02-26 20:00] VITALS: BP 112/69
[2020-02-27 03:59] LABS: PCO2 33.2 mmHg (35.0-45.0); PO2 107.4 mmHg (75.0-100.0); pH 7.399 (7.340-7.450)
[2020-02-27 04:30] VITALS: BP 128/65
[2020-02-27 07:02] LABS: ABSOLUTE BASOPHILS 0.2 thou/uL (0.0-0.2); ABSOLUTE LYMPHOCYTES 0.4 thou/uL (0.8-5.3); ABSOLUTE NEUTROPHILS 30.4 thou/uL (1.6-8.1); BASOPHILS 0.5 %; HEMATOCRIT 30.2 % (37.0-47.0); HEMOGLOBIN 9.6 gm/dL (12.0-15.0); LYMPHOCYTES 1.2 %; MCH 23.2 pg (26.0-34.0); MCHC 31.8 g/dL (28.0-37.0); MCV 73.1 fL (80.0-100.0); MONOCYTES 6.1 %; MPV 7.7 fl. (7.2-11.1); NUCLEATED RBCS 0 /100WBC; PLATELET COUNT* 174 thou/uL (150-400); POLYS 92.2 %; RBC 4.13 mil/uL (4.20-5.00); RDW-CV 21.2 % (10.5-14.5)
--- NOTE | 2020-02-27 07:14 | NUR ---
PT CARE ASSUMED AT 1930. PT HAVING TACHYPNEA AND TACHYCARDIA, SOUNDED CRACKLES IN THE LUNGS, PHYSICIAN INFORMED, ORDERS RECIEVED AND IMPLEMENTED. SITTER IN THE ROOM. PT ON BIPAP. CALL LIGHT WITHIN REACH AND BED IN LOW POSITION. HOURLY ROUNDING DONE FOR PT SAFETY.
[2020-02-27 07:16] LABS: CALCIUM 8.1 mg/dL (8.5-10.1); CREATININE 1.3 mg/dL (0.6-1.3); POTASSIUM 3.7 mmol/L (3.5-5.1)
[2020-02-27 08:17] VITALS: BP 124/53
[2020-02-27 10:28] LABS: BE -2.7 mmol/L (-2 to +3); PCO2 26.9 mmHg (35.0-45.0); pH 7.483 (7.340-7.450)
[2020-02-27 10:31] LABS: PO2 43.4 mmHg (75.0-100.0)
--- NOTE | 2020-02-27 11:14 | NUR ---
Anticipate dc in a few days. Not doing well today, not tolerating bipap. Plan back to LTC once medically stable, Pt will need a rapid covid at dc.
--- NOTE | 2020-02-27 11:14 | NUR ---
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, TRACING SR WITH PAC- UPON ASSESSMENT PT NOTED TO BE RESTING IN BED, SITTER AT SIDE TO HELP KEEP BIPAP IN PLACE R/T PT BEING IMPULSIVE AND TRYING TO REMOVE- Q 2HOUR TURNS IN PLACE INDICATED-KEN IN PLACE D/D CLOUDY YELLOW URINE, INCONT OF BOWEL- NPO STATUS AT THIS TIME R/T ASPIRATION- LCT LEFT UPPER LOBE, DIMINISHED IN ALL OTHERS- CONGESTION NOTED WITH POOR COUGH EFFORT- ABD SOFT/ROUND/NON-TENDER, BS X4 QUADS- PT REPORTED TO HAVE HAD BM ON PRIOR SHIFT- BARRIOR CREAM APPLIED TO COCCYX INDICATED- PRN ATIVAN GIVEN THIS AM AT 1039 R/T ANXIOUSNESS/IMPULSIVNESS/PULLING AT BIPAP AND UNABLE TO REDIRECT-O2 SAT ON BIAP NOTED TO BE 86-88, RT IN TO ASSESS, WITH NOTIFIED AND ORDERED NOTED FOR ABG'S- ABG RESULTS CALLED TO , NO NEW ORDERS AT THIS TIME, LIMITED AND OPTIONS AT THIS TIME R/T DNI/DNR- RN PROCEDURE SWATHI VELÁSQUEZ, NOTIFIED AND IS GOING TO SPEAK WITH FAMILY FURTHER- CALL LIGHT AND PERSONAL BELONGINGS WITH IN REACH- ALL NEEDS MET AT THIS TIME-WCTM
[2020-02-27 11:30] VITALS: BP 95/57
--- NOTE | 2020-02-27 23:09 | NUR ---
PT CARE ASSUMED AT 1930. PT ON COMFORT CARE. PT'S HR STARTED DROPPING, NEXT OF KIN NOTIFIED. PT WAS PRONOUNCED BY THIS RN AND DELMY RN AT 0. PHYSICIAN AND MTN NOTIFIED. HEART MONITOR RETURNED TO THE STATION.
--- NOTE | 2020-02-29 12:47 | CON ---
[address] [address] CONSULTATION Name: YUE GODFREY Room: [address] IN M.R.#: [id number] Admission: 02/16/20 Attend Phys: Hira Ren MD Discharge: 02/28/20 Date of : 36 Report #: [id number] THIS REPORT FOR: //name// cc: Je Alanis MD, Dennis R MD ~ DATE OF SERVICE: 02/17/2020 HISTORY OF PRESENT ILLNESS: This is an 80-year-old female patient who was evaluated by me for altered mental status. This patient is unable to provide any history at all. I talked to the nurses looking after this patient and subsequently called the patient's daughter and discussed the patient with her. This patient has [facility] in [facility] about [facility] years that has been because of both ambulation difficulty as well as cognitive difficulty. She also had seizures at one time. It is not sure whether the seizures were related to dementia or not. She saw a neurologist and she was put on lacosamide and she has been on lacosamide. The daughter indicates that sometime she will recognize close relatives and other time she will not. When she has a systemic infection, she usually does not recognize other people. Similarly a lot of time she will not remember the month and years, but some time she will. Her mentation may be worse now, but it is difficult to tell because we do not know the baseline. REVIEW OF SYSTEMS: Indicate that she has been seen by multiple consultants. She has breathing difficulty as well as she has a possibility of GI bleed. There is no prior history of stroke, but a prior history of dementia and seizures. She does have a history of COPD and she used to smoke until about 2 years ago. There is also question of TIA in this patient, although it is not clear what symptoms they cause and how they distinguish TIA from seizures. She does have a history of hyperlipidemia and diabetes. 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 This was a relevant 14-point review of system. PAST MEDICAL HISTORY: Positive for dementia and seizure. FAMILY HISTORY: Unremarkable. SOCIAL HISTORY: She has a longstanding history of smoking, but she does not drink any alcohol on a regular basis. PHYSICAL EXAMINATION: Her examination was pretty limited. She was being transferred to another bed, limited examination was carried out. That examination does indicate no problem with cranial nerve examination, the best I can do, does not appear to have any meningeal sign. She moves both sides. 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 She is pretty confused. LABORATORY DATA: Her white count is up at 16.3. Sodium is up at 147 and [facility] [address] [place] [address] CONSULTATION Name: YUE GODFREY Room: [address] IN ..#: [id number] Admission: 02/16/20 Attend Phys: Hira Ren MD Discharge: 02/28/20 Date of : 36 Report #: [id number] albumin is down to 1.9. CT scan shows generalized atrophy. Cardiac examination is unremarkable with a blood pressure of 138/85, pulse is 105, temperature is 98.4. She is being worked up for systemic infection. IMPRESSION: This patient has advanced dementia with some superimposed encephalopathy with a prior history of seizure, probably because of dementia. I discussed the situation with the daughter and ask her how aggressive she wants to be. She does not want us to do any further neurological testing. She wants us to confine to simple measures like systemic infections evaluation and treatment, but no further workup with imaging studies of the brain or carotid or spinal tap. That appeared to be reasonable. I ordered TSH, vitamin B12 and I will suggest checking that. If there is any change in the plan or the patient has some unusual things like seizure, she can contact us. I will be happy to follow up. Otherwise, we will sign off. Thank you very much for this referral. We will follow up as necessary. <ELECTRONICALLY SIGNED> By: Mata Allen MD 02/29/20 [id number] Allen MD /nt
== END 2020-02-28 01:15 | DRG 871 ==
LOC: M.ERS 11:05 → M.2W 12:35 → M.TBA-ER 12:35 → M.ICU 12:35 → M.2W 13:27 → M.ICU 14:37 → M.2W 02-23 16:05
PROVIDERS: Internal Medicine; Internal Medicine Critical Care Medicine; Nurse Practitioner Adult Health; Personal Emergency Response Attendant; ADMIT Internal Medicine; ATTEND Internal Medicine
PROC: 5A09357 Assistance with Respiratory Ventilation, Less than 24 Consecutive Hours, Continuous Positive Airway Pressure (ICD-10-PCS; principal; 2020-02-18)
PROC: 02HV33Z Insertion of Infusion Device into Superior Vena Cava, Percutaneous Approach (ICD-10-PCS; principal; 2020-02-18)
PROC: B548ZZA Ultrasonography of Superior Vena Cava, Guidance (ICD-10-PCS; principal; 2020-02-18)
PROC: 5A09357 Assistance with Respiratory Ventilation, Less than 24 Consecutive Hours, Continuous Positive Airway Pressure (ICD-10-PCS; 2020-02-19)
PROC: 0W9930Z Drainage of Right Pleural Cavity with Drainage Device, Percutaneous Approach (ICD-10-PCS; 2020-02-20)
PROC: 5A09357 Assistance with Respiratory Ventilation, Less than 24 Consecutive Hours, Continuous Positive Airway Pressure (ICD-10-PCS; 2020-02-20)
PROC: 5A09357 Assistance with Respiratory Ventilation, Less than 24 Consecutive Hours, Continuous Positive Airway Pressure (ICD-10-PCS; 2020-02-26)
DX: A41.9 Sepsis, unspecified organism (principal); N17.0 Acute kidney failure with tubular necrosis; G93.41 Metabolic encephalopathy; E43 Unspecified severe protein-calorie malnutrition; J96.01 Acute respiratory failure with hypoxia; R65.21 Severe sepsis with septic shock; J69.0 Pneumonitis due to inhalation of food and vomit; K92.0 Hematemesis; I42.8 Other cardiomyopathies; I13.0 Hypertensive heart and chronic kidney disease with heart failure and stage 1 through stage 4 chronic kidney disease, or unspecified chronic kidney disease; J91.8 Pleural effusion in other conditions classified elsewhere; K92.2 Gastrointestinal hemorrhage, unspecified; E87.0 Hyperosmolality and hypernatremia; E78.5 Hyperlipidemia, unspecified; J44.9 Chronic obstructive pulmonary disease, unspecified; R00.1 Bradycardia, unspecified; E11.9 Type 2 diabetes mellitus without complications; K21.9 Gastro-esophageal reflux disease without esophagitis; J98.4 Other disorders of lung; D64.9 Anemia, unspecified; F03.90 Unspecified dementia, unspecified severity, without behavioral disturbance, psychotic disturbance, mood disturbance, and anxiety; N18.9 Chronic kidney disease, unspecified; I34.0 Nonrheumatic mitral (valve) insufficiency; I50.9 Heart failure, unspecified; E11.22 Type 2 diabetes mellitus with diabetic chronic kidney disease; E87.6 Hypokalemia; Z20.828 Contact with and (suspected) exposure to other viral communicable diseases; Z66 Do not resuscitate; Z51.5 Encounter for palliative care; Z79.4 Long term (current) use of insulin; Z68.22 Body mass index [BMI] 22.0-22.9, adult; Z79.899 Other long term (current) drug therapy; Z88.8 Allergy status to other drugs, medicaments and biological substances; Z86.73 Personal history of transient ischemic attack (TIA), and cerebral infarction without residual deficits; Z90.49 Acquired absence of other specified parts of digestive tract; Z28.21 Immunization not carried out because of patient refusal